=== PATIENT | male | born 1950 | race Caucasian/White ===

== ENCOUNTER 2017-08-19 10:34 | Day surgery (SDC) | payer MEDICARE, BC ==
[2017-08-19] MEDS ORDERED: DIPRIVAN 200 MG/20 ML IV ONE (10:35)
[2017-08-19] MEDS: Lactated Ringers 1,000 ML IV SCH ×2 (11:39→11:42)
--- NOTE | 2017-08-19 12:04 | HP ---
DATE OF SURGERY: 08/19/2017 HISTORY OF PRESENT ILLNESS: The patient is a 67 year-old gentleman who for a couple of months had problems with things getting stuck upper esophagus worse mainly with solids. His daughter, Yudi, had to do the Heimlich on him once or twice. He presents with dysphagia. He has had some reflux in the past. PAST MEDICAL HISTORY: Diabetes. PAST SURGICAL HISTORY: Upper endoscopy for reflux in the past. MEDICATIONS: Includes Metformin. ALLERGIES: NKDA. FAMILY HISTORY: Diabetes. SOCIAL HISTORY: No current smoking or alcohol abuse. REVIEW OF SYSTEMS: Twelve systems reviewed per admission assessment. No chest pain or palpitations other systems negative or noncontributory as above and per preadmission questionnaire. No current abdominal pain. PHYSICAL EXAMINATION: GENERAL: No acute distress. HEENT: Sclerae nonicteric. NECK: No JVD. CHEST: Equal excursion, nonlabored breathing. CVS: Regular rate and rhythm. ABDOMEN: Soft, nontender. EXTREMITIES: No edema. NEURO: Alert, moving extremities grossly symmetrically. IMPRESSION: Dysphagia unclear etiology. I feel he would benefit from upper endoscopy possible biopsy, possible esophageal dilatation. He was shown the risk sheet and explained the procedure in detail including but not limited to bleeding or infection, small risk of bowel injury or perforation possibly requiring open procedure, small risk of missed or nondiagnosis or inability to improve his situation or swallowing even with dilatation if it is more of a neurologic, functional problem or mechanical. He also understands if he has narrowing if he does have narrowed area and is dilated there is a chance that he might need to repeat it again down the road. He understands this as well as risk of sedation but not limited to. Will proceed with EGD, possible biopsy, possible dilatation when OR time available later today.
[2017-08-19 14:33] VITALS: BP 140/87; PULSE 60; O2SAT 96
--- NOTE | 2017-08-20 11:08 | OP ---
SURGERY DATE/TIME: 08/19/2017 1313 PREOPERATIVE DIAGNOSIS: Dysphagia. POSTOPERATIVE DIAGNOSES: 1) Mild chronic gastritis. 2) Distal esophagitis. 3) Proximal esophageal narrowing. PROCEDURES: 1) EGD with cold biopsy of the antrum to evaluate for Helicobacter pylori. 2) Cold biopsy distal esophagus to evaluate for esophagitis. 3) Esophageal balloon dilatation proximal esophageal narrowing (size 20 balloon dilator). SURGEON: Dr. Kun Pollard. ANESTHESIA: MAC. ESTIMATED BLOOD LOSS: Minimal. INDICATIONS: As noted above. Risks and benefits explained in detail and not limited to and consent obtained. DESCRIPTION OF PROCEDURE AND FINDINGS: The patient is taken to the operating room. MAC anesthesia introduced. After official time out and no disagreement with planned procedure, bite block positioned. Video gastroscope passed through the narrowed area of proximal esophagus where he was having problems with his symptoms with food getting stuck. The scope was able to be passed through this area. There were no signs of any obvious masses in this narrowed area. The scope passed back down the more distal esophagus. He had some evidence of esophagitis. No gross signs of Carranza's. The scope was able to be passed through with the gastroesophageal junction noted to be about 40 cm. The scope passed through the pylorus to the junction of the second and third portion of the duodenum. On withdrawal of the scope the duodenum, duodenal bulb grossly unremarkable. Back in the stomach he had some mild gastritis. A cold biopsy taken to evaluate for Helicobacter pylori. Good hemostasis noted. On retroflex there was no evidence of any large hiatal hernia and had just a very slight hiatal hernia. The scope was straightened. Gastroesophageal junction noted to be about 40 cm. Again, he had distal esophagus. Cold biopsies taken for further evaluation. Good hemostasis noted. Otherwise there is no evidence of any narrowed area here but in the proximal esophagus where the narrowed area had been there was no evidence of any mass or other lesion to biopsy but it was felt he would benefit from dilatation given his symptoms. The scope passed back down through the stomach. Balloon catheter carefully passed and under direct visualization pulled back to proximal esophageal narrowing and gradually inflated to size 18 for 30 to 45 seconds, size 19 for 30 to 45 seconds and then size 20 balloon dilator for 2 minutes. The balloon was then released and withdrawn. The scope was able to be passed through the area which was much more widely patent. The scope was passed back down the stomach slowly and carefully withdrawn. There is no evidence of any full thickness issues or injury secondary to dilatation. The patient tolerated the procedure well. Findings discussed with the family out in the waiting area. It was felt he would likely benefit from acid blockade. I will have his family doctor decide on medication of choice. In the meantime, I will see him back in the office to go over biopsy results next week.
== END 2017-08-19 14:47 | disposition home or self-care (01) ==
LOC: SDC 10:34
PROVIDERS: ATTEND Surgery
PROC: 0DB38ZX Excision of Lower Esophagus, Via Natural or Artificial Opening Endoscopic, Diagnostic (ICD-10-PCS; principal; 2017-08-19)
PROC: 0DB78ZX Excision of Stomach, Pylorus, Via Natural or Artificial Opening Endoscopic, Diagnostic (ICD-10-PCS; 2017-08-19)
PROC: 0D718ZZ Dilation of Upper Esophagus, Via Natural or Artificial Opening Endoscopic (ICD-10-PCS; 2017-08-19)
DX: K29.50 Unspecified chronic gastritis without bleeding (principal); K20.9 Esophagitis, unspecified; K22.2 Esophageal obstruction; E11.9 Type 2 diabetes mellitus without complications; Z79.4 Long term (current) use of insulin
CPT/HCPCS: 00740; C1726; J2704

== ENCOUNTER 2019-09-03 21:02 | Inpatient (IN) | payer MEDICARE ==
--- NOTE | 2019-09-03 21:11 | ERPHSYRPT ---
- History of Present Illness Time Seen by Provider: 09/03/19 21:36 Source: patient, family () Exam Limitations: clinical condition Patient Subjective Stated Complaint: Pt is here not feeling well. Pt has a headache and a cough and has been short of breath. Pt has also been a little confused per family. Physician History: Pt has had a bit of a cough for up to a week but much worse today. Pt not acting himself and had a high glucose of 400-500 at home earlier but was not that high on intake/triage. Pt has not been having any discomfort with urinating , nausea, vomiting or diarrhea. Pt has a headache. Pt has had a decreased appetite tonight. Pt did eat lunch - pizza and salad but became worse after that. Pt's states that the pt didn't have any fever at home but has a fever of 102.2 F by oral temp. Time of Onset/Last Time Seen Normal: started acting differently like he didn't feel well at 15:00. Timing/Duration: today Severity: moderate Character of Deficits: general (difuse) Deficits: decrease ability to stand, weak Baseline/Normal Cognition: alert oriented x 3 Current Cognition: alert oriented x 3 Associated Symptoms: confusion, weakness, headache, No nausea, No vomiting, No ringing in ears, No chest pain Allergies/Adverse Reactions: No Known Drug Allergies Allergy (Verified 09/03/19 21:30) Home Medications: Amlodipine Besylate 2.5 mg PO DAILY 09/03/19 [History] Atorvastatin Calcium 20 mg PO HS 09/03/19 [History] Cholecalciferol (Vitamin D3) [Vitamin D3] 1 tab PO DAILY 09/03/19 [History] Cyanocobalamin (Vitamin B-12) [Vitamin B12] 1,000 mcg PO DAILY 09/03/19 [History ] Gabapentin 100 mg PO BID 09/03/19 [History] Gabapentin 300 mg PO HS 09/03/19 [History] - Review of Systems Constitutional: Fever ( denies fever but pt had a fever on arrival), Other Eyes: Photophobia Ears, Nose, & Throat: No Symptoms Respiratory: Cough, No Stridor, No Wheezing Cardiac: No Symptoms, No Palpitations Abdominal/Gastrointestinal: No Symptoms, No Abdominal Pain, No Nausea, No Vomiting, No Diarrhea Genitourinary Symptoms: No Symptoms, Frequency, No Dysuria, No Hematuria, No Hesitancy, No Incontinence Musculoskeletal: No Symptoms Skin: No Symptoms Neurological: Headache, Lethargy, No Dizziness, No Focal Weakness, No Irritability, No Speech Changes Psychological: No Symptoms Endocrine: Other (hyperglycemia) Hematologic/Lymphatic: No Symptoms Immunological/Allergic: No Symptoms All Other Systems: Reviewed and Negative - Past Medical History Pertinent Past Medical History: Yes Neurological History: No Pertinent History ENT History: No Pertinent History Cardiac History: No Pertinent History Respiratory History: No Pertinent History Endocrine Medical History: Diabetes Type II Musculoskeletal History: No Pertinent History GI Medical History: Ulcer, Other History: Other Psycho-Social History: No Pertinent History Male Reproductive Disorders: No Pertinent History Other Medical History: states hx of only one kidney. esophageal ulcer 20 years ago. diet controlled diabetic - Past Surgical History Past Surgical History: Yes Neuro Surgical History: No Pertinent History Cardiac: No Pertinent History Respiratory: No Pertinent History Gastrointestinal: No Pertinent History Genitourinary: No Pertinent History Musculoskeletal: Other Male Surgical History: No Pertinent History Other Surgical History: fatty tumor exc on back. egd and colonoscopy. exploration to esophageal ulcer - Social History Smoking Status: Never smoker Exposure to second hand smoke: No Drug Use: none - Nursing Vital Signs Nursing Vital Signs: Initial Vital Signs Temperature 102 F 09/03/19 21:12 Pulse Rate 107 H 09/03/19 21:12 Respiratory Rate 19 09/03/19 21:12 Blood Pressure 158/79 09/03/19 21:12 O2 Sat by Pulse Oximetry 100 09/03/19 21:12 Pain Scale Pain Intensity 9 - Shantanu Coma Scale Best Eye Response (Shantanu): (4) open spontaneously Best Verbal Response ([place]): (5) oriented Best Motor Response ([place]): (6) obeys commands [place] Total: 15 - Physical Exam General Appearance: no apparent distress Eye Exam: bilateral eye: normal inspection, PERRL, EOMI Ears, Nose, Throat Exam: TMs normal, pharynx normal, dry mucous membranes, other (posterior aspect of the tongue is black and no peptobismol was given.) Neck Exam: normal inspection Respiratory: diminished breath sounds Cardiovascular: regular rate/rhythm, normal heart sounds, tachycardia, capillary refill <2 sec Gastrointestinal: soft, normal bowel sounds, No tenderness, No distention Extremity Exam: normal inspection, pedal edema (1/4) Peripheral Pulses: dorsalis-pedis (R): 2+, dorsalis-pedis (L): 2+ Mental Status: alert, oriented x 3, cooperative, lethargy (febrile), No agitated , 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 Exam: normal hearing, normal speech, PERRL, No facial asymmetry, No facial weakness, No gaze palsy Motor/Sensory: no motor deficit, no sensory deficit Skin Exam: normal color, warm, dry, other (very warm), No rash SpO2 Interpretation: normal SpO2: 100 O2 Delivery: Room Air - Course Nursing assessment & vital signs reviewed: Yes Ordered Tests: Active Orders 24 hr Category Date Time Status Accucheck STAT Care 09/03/19 21:48 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 09/03/19 21:50 Active Pulse Oximetry (ED) STAT Care 09/03/19 21:48 Active CHEST 2 VIEWS (PA AND LAT) Stat Exams 09/03/19 22:25 Taken BLOOD CULTURE Stat Lab 09/03/19 21:48 Ordered BNP [NT PRO BNP] Stat Lab 09/03/19 21:50 Completed CBC W DIFF Stat Lab 09/03/19 21:48 Completed CMP Stat Lab 09/03/19 21:48 Completed Lactic Acid Stat Lab 09/03/19 21:48 Results Manual Differential NC Stat Lab 09/03/19 21:48 Completed UA W/RFX UR CULTURE Stat Lab 09/03/19 22:53 Completed Medication Summary Generic Name Dose Route Start Last Admin Trade Name Freq PRN Reason Stop Dose Admin Ceftriaxone Sodium/Dextrose 1 g in 50 mls @ 100 mls/hr 09/03/19 22:54 23:00 Rocephin 1 Gm-D5w 50 Ml Bag IV 09/03/19 23:23 100 mls/hr STAT ONE 100 mls/hr Administration Discontinued Medications Generic Name Dose Route Start Last Admin Trade Name Freq PRN Reason Stop Dose Admin Acetaminophen 650 mg 09/03/19 21:48 09/03/19 21:54 Tylenol 325 Mg PO 09/03/19 21:49 650 mg STAT STA Administration Acetaminophen Confirm 09/03/19 21:53 Tylenol 325 Mg Administered 09/03/19 21:54 Dose 650 mg .ROUTE .STK-MED ONE Ceftriaxone Sodium/Dextrose Confirm 09/03/19 22:59 Rocephin 1 Gm-D5w 50 Ml Bag Administered 09/03/19 23:00 Dose 1 g in 50 mls @ ud IV .STK-MED ONE Lab/Rad Data: Laboratory Result Diagrams 09/03/19 21:48 09/03/19 21:48 Laboratory Results 09/03/19 09/03/19 09/03/19 Range/Units 22:53 21:50 21:48 WBC (4.0-10.5) K/mm3 RBC (4.1-5.6) M/mm3 Hgb (12.5-18.0) gm/dl Hct (42-50) % MCV (78-100) fl MCH (26-32) pg MCHC (32-36) g/dl RDW (11.5-14.0) % Plt Count (150-450) K/mm3 MPV (6-9.5) fl Sodium 138 (137-145) mmol/L Potassium 4.4 (3.5-5.1) mmol/L Chloride 101 (98-107) mmol/L Carbon Dioxide 27 (22-30) mmol/L Anion Gap 14.9 (5-15) MEQ/L BUN 22 H (9-20) mg/dL Creatinine 1.27 H (0.66-1.25) mg/dL Estimated GFR > 60.0 ML/MIN Glucose 200 H (74-106) mg/dL Lactic Acid (0.4-2.0) Calcium 9.9 (8.4-10.2) mg/dL Total Bilirubin 0.60 (0.2-1.3) mg/dL AST 19 (17-59) U/L ALT 19 (0-50) U/L Alkaline Phosphatase 93 (38-126) U/L NT-Pro-B Natriuret Pep 123 (0-900) pg/mL Serum Total Protein 8.1 (6.3-8.2) g/dL Albumin 4.3 (3.5-5.0) g/dL Urine Color YELLOW (YELLOW) Urine Appearance SLIGHTLY CLOUDY (CLEAR) Urine pH 5.0 (5-6) Ur Specific [place] 1.026 (1.005-1.025) Urine Protein NEGATIVE (Negative) Urine Ketones NEGATIVE (NEGATIVE) Urine Blood SMALL (0-5) [place]/ul Urine Nitrite NEGATIVE (NEGATIVE) Urine Bilirubin NEGATIVE (NEGATIVE) Urine Urobilinogen 2 (0-1) mg/dL Ur Leukocyte Esterase NEGATIVE (NEGATIVE) Urine WBC (Auto) 0-2 (0-5) /HPF Urine RBC (Auto) 0-2 (0-2) /HPF U Epithel Cells (Auto) NONE (FEW) /HPF Urine Bacteria (Auto) NONE (NEGATIVE) /HPF Urine Mucus (Auto) SLIGHT (NEGATIVE) /HPF Urine Culture Reflexed NO (NO) Urine Glucose 50 (NEGATIVE) mg/dL 09/03/19 09/03/19 Range/Units 21:48 21:48 WBC 28.9 H* (4.0-10.5) K/mm3 RBC 5.04 (4.1-5.6) M/mm3 Hgb 15.6 (12.5-18.0) gm/dl Hct 45.3 (42-50) % MCV 89.9 (78-100) fl MCH 31.0 (26-32) pg MCHC 34.4 (32-36) g/dl RDW 12.5 (11.5-14.0) % Plt Count 209 (150-450) K/mm3 MPV 10.8 H (6-9.5) fl Sodium (137-145) mmol/L Potassium (3.5-5.1) mmol/L Chloride (98-107) mmol/L Carbon Dioxide (22-30) mmol/L Anion Gap (5-15) MEQ/L BUN (9-20) mg/dL Creatinine (0.66-1.25) mg/dL Estimated GFR ML/MIN Glucose (74-106) mg/dL Lactic Acid 2.0 (0.4-2.0) Calcium (8.4-10.2) mg/dL Total Bilirubin (0.2-1.3) mg/dL AST (17-59) U/L ALT (0-50) U/L Alkaline Phosphatase (38-126) U/L NT-Pro-B Natriuret Pep (0-900) pg/mL Serum Total Protein (6.3-8.2) g/dL Albumin (3.5-5.0) g/dL Urine Color (YELLOW) Urine Appearance (CLEAR) Urine pH (5-6) Ur Specific [place] (1.005-1.025) Urine Protein (Negative) Urine Ketones (NEGATIVE) Urine Blood (0-5) [place]/ul Urine Nitrite (NEGATIVE) Urine Bilirubin (NEGATIVE) Urine Urobilinogen (0-1) mg/dL Ur Leukocyte Esterase (NEGATIVE) Urine WBC (Auto) (0-5) /HPF Urine RBC (Auto) (0-2) /HPF U Epithel Cells (Auto) (FEW) /HPF Urine Bacteria (Auto) (NEGATIVE) /HPF Urine Mucus (Auto) (NEGATIVE) /HPF Urine Culture Reflexed (NO) Urine Glucose (NEGATIVE) mg/dL - Progress Progress: improved Progress Note: 09/03/19 23:41 Pt's headache has improved after tylenol and slight decrease in fever. Pt's CXR appears to have an early infiltrate starting in bilateral lower lungs with granulomatous disease. Pt with lactic acid of 2.0 but WBC count of 28.9. Will admit for iv antibiotics and recheck CBC in the a.m. - Departure Departure Disposition: In-patient Admission Clinical Impression: Infiltrate of lung present on chest x-ray, Leukocytosis, Fever, Diabetes mellitus Condition: Stable Critical Care Time: No Referrals: JOÃO PADGETT DO [Primary Care Provider] - Additional Instructions: admit to inpt with IV antibiotics and IV fluids with recheck of labs in the morning.
[2019-09-03] MEDS ORDERED: TYLENOL 325 MG PO STA (21:48)
[2019-09-03] MEDS ORDERED: TYLENOL 325 MG ONE (21:53)
[2019-09-03 22:01] LABS: ALBUMIN 4.3 g/dL (3.5-5.0); ALKALINE PHOSPHATASE 93 U/L (38-126); ANION GAP 14.9 MEQ/L (5-15); BLOOD UREA NITROGEN 22 mg/dL (9-20); CHLORIDE 101 mmol/L (98-107); Calcium 9.9 mg/dL (8.4-10.2); Carbon Dioxide 27 mmol/L (22-30); Creatinine 1 1.27 mg/dL (0.66-1.25); Glucose 200 mg/dL (74-106); Potassium 4.4 mmol/L (3.5-5.1); SGOT/AST 19 U/L (17-59); SGPT/ALT 19 U/L (0-50); SODIUM 138 mmol/L (137-145); Total Protein 8.1 g/dL (6.3-8.2)
[2019-09-03 22:24] LABS: Hematocrit 45.3 % (42-50); Hemoglobin 15.6 gm/dl (12.5-18.0); Mean Cell Volume 89.9 fl (78-100); Mean Corpuscular Hgb Concent. 34.4 g/dl (32-36); Mean Platelet Volume 10.8 fl (6-9.5); Platelet Count 209 K/mm3 (150-450); Red Blood Count 5.04 M/mm3 (4.1-5.6); Red Cell Distribution Width 12.5 % (11.5-14.0)
[2019-09-03 22:31] LABS: White Blood Count 28.9 K/mm3 (4.0-10.5)
[2019-09-03] MEDS ORDERED: ROCEPHIN 1 Gm-D5w 50 ml Bag** 1 G/50 ML IVPB IV ONE ×2 (22:54→22:59)
[2019-09-03 23:11] LABS: Appearance SLIGHTLY CLOUDY (CLEAR); Bilirubin NEGATIVE (NEGATIVE); Blood SMALL Ery/ul (0-5); Glucose 50 mg/dL (NEGATIVE); Ketones NEGATIVE (NEGATIVE); Leukocyte Esterase NEGATIVE (NEGATIVE); Mucus SLIGHT /HPF (NEGATIVE); Nitrite NEGATIVE (NEGATIVE); Protein,Urine Dip NEGATIVE (Negative); RBC 0-2 /HPF (0-2); Specific Gravity 1.026 (1.005-1.025); Urobilinogen 2 mg/dL (0-1); WBC 0-2 /HPF (0-5)
[2019-09-03] MEDS ORDERED: Zithromax 500 MG/ 250 ML NaCl Premix 500 MG/250 ML IVPB IV ONE ×2 (23:22→23:37)
[2019-09-03 23:35] LABS: INFLUENZA A NEGATIVE (NEGATIVE); INFLUENZA B NEGATIVE (NEGATIVE); RESPIRATORY SYNCTIAL VIRUS NEGATIVE (Negative)
[2019-09-04] MEDS ORDERED: FEVERALL 650 MG PR PRN (00:19)
[2019-09-04 00:52] LABS: BAND 6 % (0.0-2.0); Basophil 1 % (0.0-1.0); Lymphocytes 11 % (24-44); Monocyte 6 % (0.0-12.0); Neutrophils 76 % (36.-66.); Total Cells Counted 100
[2019-09-04 00:53] LABS: Platelet Estimate NORMAL (NORMAL); Toxic Granulation RARE
[2019-09-04] MEDS ORDERED: DUONEB 0.5-3 MG/3 ml Neb IH SCH (01:00)
[2019-09-04] MEDS: Sodium Chloride 0.9% 1000 ML 1,000 ML IV SCH ×2 (01:09→10:52)
[2019-09-04] MEDS ORDERED: DUONEB 0.5-3 MG/3 ml Neb IH ONE (01:32)
[2019-09-04] MEDS ORDERED: DUONEB 0.5-3 MG/3 ml Neb IH PRN (01:52)
[2019-09-04 05:14] LABS: Hemoglobin 14.1 gm/dl (12.5-18.0); Mean Cell Volume 90.7 fl (78-100); Mean Corpuscular Hemoglobin 30.5 pg (26-32); Mean Corpuscular Hgb Concent. 33.6 g/dl (32-36); Mean Platelet Volume 10.4 fl (6-9.5); Platelet Count 168 K/mm3 (150-450); Red Blood Count 4.63 M/mm3 (4.1-5.6); Red Cell Distribution Width 12.4 % (11.5-14.0); White Blood Count 21.3 K/mm3 (4.0-10.5)
[2019-09-04 05:50] LABS: ANION GAP 12.3 MEQ/L (5-15); BLOOD UREA NITROGEN 24 mg/dL (9-20); CHLORIDE 105 mmol/L (98-107); Calcium 9.1 mg/dL (8.4-10.2); Carbon Dioxide 26 mmol/L (22-30); Creatinine 1 1.14 mg/dL (0.66-1.25); Glucose 92 mg/dL (74-106); Potassium 3.8 mmol/L (3.5-5.1); SODIUM 139 mmol/L (137-145)
--- NOTE | 2019-09-04 08:47 | XRAY ---
Indication: Fever and cough. Comparison: August 13, 2016. PA/lateral chest remains clear again with incidental calcified granulomas. Heart is not enlarged. Bony thorax intact. No new/acute findings.
--- NOTE | 2019-09-04 13:43 | PCM.HP ---
History of Present Illness - Chief Complaint Chief Complaint: pneumonia, leukocytosis, fever History of Present Illness: is a 69 year old male IDDM2 and HTN who presented to ER late yesterday . states he was not acting himself ,talking but not making sense c/o chills ,dry cough,SOB and sugars up to 400.Patient states he laid in a ditch trying to get a car out about 5 days ago and thinks a spider bit his left thigh and it is tender to touch. - Review of Systems Constitutional: Chills, Fatigue Eyes: No Symptoms Ears, Nose, & Throat: No Symptoms Respiratory: Cough Cardiac: No Symptoms Abdominal/Gastrointestinal: No Symptoms Genitourinary Symptoms: No Symptoms Musculoskeletal: Other (see HPI) Skin: Induration (c/o left anterior thigh with hard red area that is tender and thinks he got bit buy something when he was working on the car in the ditch because that is when he noticed it.) Neurological: Other (neuropathy ,takes Gabapentin) Psychological: No Symptoms, Other (spell of confusion resolved by the time patient was admitted per ) Endocrine: Other (DM2 on controlled on insulin until this month when the fatigue and dry cough started) Hematologic/Lymphatic: Adenopathy (left groin shotty nodes mildly tender ) Medications & Allergies Home Medications: Home Medication List Amlodipine Besylate 2.5 mg PO DAILY 09/03/19 [History Confirmed 09/04/19] Atorvastatin Calcium 20 mg PO HS 09/03/19 [History Confirmed 09/04/19] Cholecalciferol (Vitamin D3) [Vitamin D3] 1 tab PO DAILY 09/03/19 [History Confirmed 09/04/19] Cyanocobalamin (Vitamin B-12) [Vitamin B12] 1,000 mcg PO DAILY 09/03/19 [ History Confirmed 09/04/19] Gabapentin 100 mg PO BID 09/03/19 [History Confirmed 09/04/19] Gabapentin 300 mg PO HS 09/03/19 [History Confirmed 09/04/19] Glimepiride 1 mg PO TID 09/04/19 [History Confirmed 09/04/19] Insulin Glargine,Hum.rec.anlog [Basaglar Kwikpen U-100] 24 unit SQ HS 09/04/19 [ History Confirmed 09/04/19] Insulin Lispro [Humalog] 4 unit SQ AC 09/04/19 [History Confirmed 09/04/19] Allergies/Adverse Reactions: Allergies Allergy/AdvReac Type Severity Reaction Status Date / Time No Known Drug Allergies Allergy Verified 09/03/19 21:30 - Past Medical History Past Medical History: Yes Neurological History: No Pertinent History ENT History: No Pertinent History Cardiac History: No Pertinent History Respiratory History: No Pertinent History Endocrine Medical History: Diabetes Type II Musculoskelatal History: No Pertinent History GI Medical History: Ulcer, Other History: Other Pyscho-Social History: No Pertinent History Male Reproductive Disorders: No Pertinent History Comment: states hx of only one kidney. esophageal ulcer 20 years ago. diet controlled diabetic - Past Surgical History Past Surgical History: Yes Neuro Surgical History: No Pertinent History Cardiac History: No Pertinent History Respiratory Surgery: No Pertinent History GI Surgical History: No Pertinent History Genitourinary Surgical Hx: No Pertinent History Musculskeletal Surgical Hx: Other Male Surgical History: No Pertinent History Other Surgical History: fatty tumor exc on back. egd and colonoscopy. exploration to esophageal ulcer - Social History Smoking Status: Never smoker Exposure to second hand smoke: No Alcohol: None Drug Use: none - Physical Exam Vital Signs: Vital Signs - 24 hr Temp Pulse Resp BP Pulse Ox 09/04/19 12:00 98.9 F 81 20 130/70 96 09/04/19 10:43 85 18 96 09/04/19 08:00 99.4 F 89 19 147/68 95 09/04/19 04:00 99 F 91 H 18 154/79 94 L 09/04/19 01:34 88 20 94 L 09/04/19 00:28 101.4 F 98 H 14 130/60 95 09/03/19 23:56 100 09/03/19 23:48 99 H 158/78 97 09/03/19 22:53 92 H 127/59 99 09/03/19 21:53 100 H 122/57 97 09/03/19 21:12 102 F 107 H 19 158/79 100 General Appearance: no apparent distress Neurologic Exam: alert, oriented x 3, cooperative, normal mood/affect Eye Exam: eyes nml inspection Ears, Nose, Throat Exam: normal ENT inspection Neck Exam: normal inspection Respiratory Exam: diminished breath sounds (left base) Cardiovascular Exam: regular rate/rhythm Gastrointestinal/Abdomen Exam: soft, normal bowel sounds (nontender) Male Genitalia Exam: other (no palpable hernia but there is tenderness in the left groin) Extremity Exam: other ( left mid thigh with a slightly reddened,indurated flat coin size area,skin is intact) Results - Labs Lab/Micro Results: Accuchecks Date 09/04/19 Date 09/04/19 Time 11:30 Time 07:30 Accucheck Value: 133 Accucheck Value: 205 Lab Results-Last 24 Hours 09/03/19 09/03/19 09/03/19 Range/Units 21:48 21:48 21:48 WBC 28.9 H* (4.0-10.5) K/mm3 RBC 5.04 (4.1-5.6) M/mm3 Hgb 15.6 (12.5-18.0) gm/dl Hct 45.3 (42-50) % MCV 89.9 (78-100) fl MCH 31.0 (26-32) pg MCHC 34.4 (32-36) g/dl RDW 12.5 (11.5-14.0) % Plt Count 209 (150-450) K/mm3 MPV 10.8 H (6-9.5) fl Segmented Neutrophils 76 H (36.-66.) % Band Neutrophils 6 H (0.0-2.0) % Lymphocytes (Manual) 11 L (24-44) % Monocytes (Manual) 6 (0.0-12.0) % Basophils (Manual) 1 (0.0-1.0) % Toxic Granulation RARE Platelet Estimate NORMAL (NORMAL) RBC Morphology NORMAL Sodium 138 (137-145) mmol/L Potassium 4.4 (3.5-5.1) mmol/L Chloride 101 (98-107) mmol/L Carbon Dioxide 27 (22-30) mmol/L Anion Gap 14.9 (5-15) MEQ/L BUN 22 H (9-20) mg/dL Creatinine 1.27 H (0.66-1.25) mg/dL Estimated GFR > 60.0 ML/MIN Glucose 200 H (74-106) mg/dL Lactic Acid 2.0 (0.4-2.0) Calcium 9.9 (8.4-10.2) mg/dL Total Bilirubin 0.60 (0.2-1.3) mg/dL AST 19 (17-59) U/L ALT 19 (0-50) U/L Alkaline Phosphatase 93 (38-126) U/L NT-Pro-B Natriuret Pep (0-900) pg/mL Serum Total Protein 8.1 (6.3-8.2) g/dL Albumin 4.3 (3.5-5.0) g/dL Urine Color (YELLOW) Urine Appearance (CLEAR) Urine pH (5-6) Ur Specific Huggins (1.005-1.025) Urine Protein (Negative) Urine Ketones (NEGATIVE) Urine Blood (0-5) Jamison/ul Urine Nitrite (NEGATIVE) Urine Bilirubin (NEGATIVE) Urine Urobilinogen (0-1) mg/dL Ur Leukocyte Esterase (NEGATIVE) Urine WBC (Auto) (0-5) /HPF Urine RBC (Auto) (0-2) /HPF U Epithel Cells (Auto) (FEW) /HPF Urine Bacteria (Auto) (NEGATIVE) /HPF Urine Mucus (Auto) (NEGATIVE) /HPF Urine Culture Reflexed (NO) Urine Glucose (NEGATIVE) mg/dL Influenza Type A Ag (NEGATIVE) Influenza Type B Ag (NEGATIVE) RSV (PCR) (Negative) 09/03/19 09/03/19 09/03/19 Range/Units 21:50 22:00 22:53 WBC (4.0-10.5) K/mm3 RBC (4.1-5.6) M/mm3 Hgb (12.5-18.0) gm/dl Hct (42-50) % MCV (78-100) fl MCH (26-32) pg MCHC (32-36) g/dl RDW (11.5-14.0) % Plt Count (150-450) K/mm3 MPV (6-9.5) fl Segmented Neutrophils (36.-66.) % Band Neutrophils (0.0-2.0) % Lymphocytes (Manual) (24-44) % Monocytes (Manual) (0.0-12.0) % Basophils (Manual) (0.0-1.0) % Toxic Granulation Platelet Estimate (NORMAL) RBC Morphology Sodium (137-145) mmol/L Potassium (3.5-5.1) mmol/L Chloride (98-107) mmol/L Carbon Dioxide (22-30) mmol/L Anion Gap (5-15) MEQ/L BUN (9-20) mg/dL Creatinine (0.66-1.25) mg/dL Estimated GFR ML/MIN Glucose (74-106) mg/dL Lactic Acid (0.4-2.0) Calcium (8.4-10.2) mg/dL Total Bilirubin (0.2-1.3) mg/dL AST (17-59) U/L ALT (0-50) U/L Alkaline Phosphatase (38-126) U/L NT-Pro-B Natriuret Pep 123 (0-900) pg/mL Serum Total Protein (6.3-8.2) g/dL Albumin (3.5-5.0) g/dL Urine Color YELLOW (YELLOW) Urine Appearance SLIGHTLY CLOUDY (CLEAR) Urine pH 5.0 (5-6) Ur Specific Huggins 1.026 (1.005-1.025) Urine Protein NEGATIVE (Negative) Urine Ketones NEGATIVE (NEGATIVE) Urine Blood SMALL (0-5) Jamison/ul Urine Nitrite NEGATIVE (NEGATIVE) Urine Bilirubin NEGATIVE (NEGATIVE) Urine Urobilinogen 2 (0-1) mg/dL Ur Leukocyte Esterase NEGATIVE (NEGATIVE) Urine WBC (Auto) 0-2 (0-5) /HPF Urine RBC (Auto) 0-2 (0-2) /HPF U Epithel Cells (Auto) NONE (FEW) /HPF Urine Bacteria (Auto) NONE (NEGATIVE) /HPF Urine Mucus (Auto) SLIGHT (NEGATIVE) /HPF Urine Culture Reflexed NO (NO) Urine Glucose 50 (NEGATIVE) mg/dL Influenza Type A Ag NEGATIVE (NEGATIVE) Influenza Type B Ag NEGATIVE (NEGATIVE) RSV (PCR) NEGATIVE (Negative) 09/04/19 09/04/19 09/04/19 Range/Units 01:33 04:35 04:35 WBC 21.3 H (4.0-10.5) K/mm3 RBC 4.63 (4.1-5.6) M/mm3 Hgb 14.1 (12.5-18.0) gm/dl Hct 42.0 (42-50) % MCV 90.7 (78-100) fl MCH 30.5 (26-32) pg MCHC 33.6 (32-36) g/dl RDW 12.4 (11.5-14.0) % Plt Count 168 (150-450) K/mm3 MPV 10.4 H (6-9.5) fl Segmented Neutrophils (36.-66.) % Band Neutrophils (0.0-2.0) % Lymphocytes (Manual) (24-44) % Monocytes (Manual) (0.0-12.0) % Basophils (Manual) (0.0-1.0) % Toxic Granulation Platelet Estimate (NORMAL) RBC Morphology Sodium 139 (137-145) mmol/L Potassium 3.8 (3.5-5.1) mmol/L Chloride 105 (98-107) mmol/L Carbon Dioxide 26 (22-30) mmol/L Anion Gap 12.3 (5-15) MEQ/L BUN 24 H (9-20) mg/dL Creatinine 1.14 (0.66-1.25) mg/dL Estimated GFR > 60.0 ML/MIN Glucose 92 (74-106) mg/dL Lactic Acid 1.5 (0.4-2.0) Calcium 9.1 (8.4-10.2) mg/dL Total Bilirubin (0.2-1.3) mg/dL AST (17-59) U/L ALT (0-50) U/L Alkaline Phosphatase (38-126) U/L NT-Pro-B Natriuret Pep (0-900) pg/mL Serum Total Protein (6.3-8.2) g/dL Albumin (3.5-5.0) g/dL Urine Color (YELLOW) Urine Appearance (CLEAR) Urine pH (5-6) Ur Specific Huggins (1.005-1.025) Urine Protein (Negative) Urine Ketones (NEGATIVE) Urine Blood (0-5) Jamison/ul Urine Nitrite (NEGATIVE) Urine Bilirubin (NEGATIVE) Urine Urobilinogen (0-1) mg/dL Ur Leukocyte Esterase (NEGATIVE) Urine WBC (Auto) (0-5) /HPF Urine RBC (Auto) (0-2) /HPF U Epithel Cells (Auto) (FEW) /HPF Urine Bacteria (Auto) (NEGATIVE) /HPF Urine Mucus (Auto) (NEGATIVE) /HPF Urine Culture Reflexed (NO) Urine Glucose (NEGATIVE) mg/dL Influenza Type A Ag (NEGATIVE) Influenza Type B Ag (NEGATIVE) RSV (PCR) (Negative) Accuchecks Date 09/04/19 Date 09/04/19 Time 11:30 Time 07:30 Accucheck Value: 133 Accucheck Value: 205 - Radiology Impressions Radiology Exams & Impressions: Radiology Procedures Category Date Time Status CHEST 2 VIEWS (PA AND LAT) Stat Exams 09/03/19 22:25 Completed - Other Procedures and Tests Respiratory Therapy 09/04/19 01:37 Respiratory Therapy Assessment DAILY Assessment/Plan (1) Leukocytosis Current Visit: Yes Status: Acute Assessment & Plan: improving after 1st dose Zithromax and Rocephin Code(s): D72.829 - ELEVATED WHITE BLOOD CELL COUNT, UNSPECIFIED (2) Left lower lobe pneumonia Current Visit: Yes Status: Acute Assessment & Plan: responding to current Tx Code(s): J18.9 - PNEUMONIA, UNSPECIFIED ORGANISM (3) DM2 (diabetes mellitus, type 2) Current Visit: Yes Status: Acute Qualifiers: Diabetes mellitus group home insulin use: with group home use Diabetes mellitus complication status: with hyperglycemia Qualified Code(s): E11.65 - Type 2 diabetes mellitus with hyperglycemia; Z79.4 - senior living (current) use of insulin (4) HTN (hypertension), benign Current Visit: Yes Status: Acute Code(s): I10 - ESSENTIAL (PRIMARY) HYPERTENSION
[2019-09-04] MEDS: NORVASC 5 MG PO SCH (16:24)
[2019-09-04] MEDS: VITAMIN D PO SCH (16:24)
[2019-09-04] MEDS: Vitamin B-12 500 MCG PO SCH (16:24)
[2019-09-04] MEDS: Amaryl 2 MG PO SCH (16:25)
[2019-09-04] MEDS: Neurontin 100 MG PO SCH (16:26)
[2019-09-04] MEDS ORDERED: NON-FORMULARY ITEM (Insulin Lispro 4 UNIT) SQ SCH (16:30)
[2019-09-04] MEDS: NovoLOG Insulin SQ PRN ×2 (16:58→21:46)
[2019-09-04] MEDS: NovoLOG Insulin SQ SCH (16:59)
[2019-09-04] MEDS ORDERED: TYLENOL 325 MG PO PRN (19:47)
[2019-09-04] MEDS ORDERED: TYLENOL 325 MG ONE (19:50)
[2019-09-04] MEDS: TYLENOL 325 MG PO PRN (19:56)
[2019-09-04] MEDS: DUONEB 0.5-3 MG/3 ml Neb IH SCH (20:05)
[2019-09-04] MEDS: ROCEPHIN 1 Gm-D5w 50 ml Bag** 1 G/50 ML IVPB IV SCH (21:39)
[2019-09-04] MEDS: NEURONTIN 300 MG PO SCH (21:45)
[2019-09-04] MEDS: ZOCOR 20MG PO SCH (21:45)
[2019-09-04] MEDS: Lantus Insulin SQ SCH (21:45)
[2019-09-04] MEDS ORDERED: INSULIN GLARGINE HUM REC ANLOG 24 UNIT SQ SCH (22:00)
[2019-09-04] MEDS: Zithromax 500 MG/ 250 ML NaCl Premix 500 MG/250 ML IVPB IV SCH (22:24)
[2019-09-05] MEDS: Sodium Chloride 0.9% 1000 ML 1,000 ML IV SCH (02:07)
[2019-09-05] MEDS: DUONEB 0.5-3 MG/3 ml Neb IH SCH ×3 (07:10→19:22)
[2019-09-05] MEDS: Neurontin 100 MG PO SCH ×2 (08:37→17:58)
[2019-09-05] MEDS: Amaryl 2 MG PO SCH ×3 (08:37→17:58)
[2019-09-05] MEDS: NovoLOG Insulin SQ SCH ×3 (08:38→17:59)
[2019-09-05] MEDS ORDERED: CHOLECALCIFEROL PO SCH (10:00)
[2019-09-05] MEDS: NORVASC 5 MG PO SCH (11:05)
[2019-09-05] MEDS: Vitamin B-12 500 MCG PO SCH (11:05)
[2019-09-05] MEDS: VITAMIN D PO SCH (11:06)
[2019-09-05 12:06] LABS: Absolute Neutrophil Ct (ANC) 5.51 (1.4-6.9); BASOPHIL % 0.6 % (0.0-0.4); Basophil (Absolute #) 0.05 (0-0.4); Eosinophil % 3.6 % (0.00-5.0); Eosinophil (Absolute #) 0.32 (0-0.5); Hematocrit 39.9 % (42-50); Hemoglobin 13.1 gm/dl (12.5-18.0); Lymphocyte (Absolute #) 1.92 (1.0-4.6); Lymphocytes % 21.5 % (24.0-44.0); Mean Cell Volume 92.1 fl (78-100); Mean Corpuscular Hemoglobin 30.3 pg (26-32); Mean Corpuscular Hgb Concent. 32.8 g/dl (32-36); Mean Platelet Volume 10.3 fl (6-9.5); Monocyte (Absolute #) 1.11 (0.0-1.3); Monocytes % 12.5 % (0.0-12.0); Neutrophil % 61.8 % (36.0-66.0); Platelet Count 153 K/mm3 (150-450); Red Blood Count 4.33 M/mm3 (4.1-5.6); Red Cell Distribution Width 12.5 % (11.5-14.0); White Blood Count 8.9 K/mm3 (4.0-10.5)
[2019-09-05 12:09] LABS: ANION GAP 11.2 MEQ/L (5-15); BLOOD UREA NITROGEN 16 mg/dL (9-20); CHLORIDE 105 mmol/L (98-107); Calcium 8.7 mg/dL (8.4-10.2); Carbon Dioxide 25 mmol/L (22-30); Creatinine 1 1.05 mg/dL (0.66-1.25); Glucose 256 mg/dL (74-106); Potassium 4.2 mmol/L (3.5-5.1); SODIUM 136 mmol/L (137-145)
[2019-09-05] MEDS: Maxzide-25MG Tablet PO SCH (12:58)
[2019-09-05] MEDS: NovoLOG Insulin SQ PRN ×2 (12:59→21:56)
[2019-09-05] MEDS: TYLENOL 325 MG PO PRN (13:02)
[2019-09-05] MEDS: ROCEPHIN 1 Gm-D5w 50 ml Bag** 1 G/50 ML IVPB IV SCH (21:55)
[2019-09-05] MEDS: ZOCOR 20MG PO SCH (21:55)
[2019-09-05] MEDS: Lantus Insulin SQ SCH (21:55)
[2019-09-05] MEDS: NEURONTIN 300 MG PO SCH (21:55)
[2019-09-05] MEDS: Zithromax 500 MG/ 250 ML NaCl Premix 500 MG/250 ML IVPB IV SCH (22:28)
--- NOTE | 2019-09-06 01:11 | PCM.NOTE ---
Date and Time: 09/05/19 1200 Subjective Assessment: Patient states cough is loosening and no further chills ,appetite is good. C/O feet swelling .Has been receiving IV saline. Denies chest pain. Objective Exam General Appearance: no apparent distress Neurologic Exam: alert, oriented x 3 Skin Exam: normal color, warm, dry Neck Exam: normal inspection Respiratory Exam: diminished breath sounds (improved aeration left base) Cardiovascular Exam: regular rate/rhythm Gastrointestinal/Abdomen Exam: soft, normal bowel sounds Extremity Exam: pedal edema, other (no calf tenderness,negative golden's) OBJECTIVE DATA Vital Signs: Vital Signs - 24 hr Temp Pulse Resp BP Pulse Ox 09/06/19 00:06 98.7 F 81 18 166/77 97 09/05/19 20:00 98.5 F 76 20 130/70 97 09/05/19 19:23 86 18 97 09/05/19 16:00 98.3 F 70 18 190/74 97 09/05/19 15:10 76 18 97 09/05/19 12:00 98.7 F 78 18 141/71 93 L 09/05/19 08:00 98.5 F 79 20 163/73 95 09/05/19 07:11 75 16 96 09/05/19 04:00 98.3 F 72 18 139/67 95 Pain Assessment - Last Documented Pain Intensity 0 Pain Scale Used 0-10 Pain Scale Intake and Output: Intake & Output 09/03/19 09/04/19 09/05/19 09/06/19 11:59 11:59 11:59 11:59 Intake Total 540 3531 1640 Output Total 400 600 300 Balance 140 2931 1340 Weight 103.1 kg Lab Results: Accuchecks Accucheck Value: 234 Accucheck Value: 128 Accucheck Value: 257 Accucheck Value: 146 Lab Results-Last 24 Hours 09/05/19 09/05/19 Range/Units 11:50 11:50 WBC 8.9 (4.0-10.5) K/mm3 RBC 4.33 (4.1-5.6) M/mm3 Hgb 13.1 (12.5-18.0) gm/dl Hct 39.9 L (42-50) % MCV 92.1 (78-100) fl MCH 30.3 (26-32) pg MCHC 32.8 (32-36) g/dl RDW 12.5 (11.5-14.0) % Plt Count 153 (150-450) K/mm3 MPV 10.3 H (6-9.5) fl Gran % 61.8 (36.0-66.0) % Eos # (Auto) 0.32 (0-0.5) Absolute Lymphs (auto) 1.92 (1.0-4.6) Absolute Monos (auto) 1.11 (0.0-1.3) Lymphocytes % 21.5 L (24.0-44.0) % Monocytes % 12.5 H (0.0-12.0) % Eosinophils % 3.6 (0.00-5.0) % Basophils % 0.6 (0.0-0.4) % Absolute Granulocytes 5.51 (1.4-6.9) Basophils # 0.05 (0-0.4) Sodium 136 L (137-145) mmol/L Potassium 4.2 (3.5-5.1) mmol/L Chloride 105 (98-107) mmol/L Carbon Dioxide 25 (22-30) mmol/L Anion Gap 11.2 (5-15) MEQ/L BUN 16 (9-20) mg/dL Creatinine 1.05 (0.66-1.25) mg/dL Estimated GFR > 60.0 ML/MIN Glucose 256 H (74-106) mg/dL Calcium 8.7 (8.4-10.2) mg/dL Assessment/Plan (1) Leukocytosis Current Visit: Yes Status: Acute Assessment & Plan: improved Code(s): D72.829 - ELEVATED WHITE BLOOD CELL COUNT, UNSPECIFIED (2) Left lower lobe pneumonia Current Visit: Yes Status: Acute Assessment & Plan: improved Code(s): J18.9 - PNEUMONIA, UNSPECIFIED ORGANISM (3) DM2 (diabetes mellitus, type 2) Current Visit: Yes Status: Acute Qualifiers: 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
[2019-09-06] MEDS: TYLENOL 325 MG PO PRN ×2 (04:28→15:07)
[2019-09-06] MEDS: Maxzide-25MG Tablet PO SCH (09:20)
[2019-09-06] MEDS: NORVASC 5 MG PO SCH (09:21)
[2019-09-06] MEDS: Vitamin B-12 500 MCG PO SCH (09:21)
[2019-09-06] MEDS: Amaryl 2 MG PO SCH ×2 (09:22→13:13)
[2019-09-06] MEDS: VITAMIN D PO SCH (09:22)
[2019-09-06] MEDS: Neurontin 100 MG PO SCH (09:23)
[2019-09-06] MEDS: NovoLOG Insulin SQ SCH ×2 (09:23→13:15)
[2019-09-06] MEDS: NovoLOG Insulin SQ PRN ×2 (09:24→13:16)
[2019-09-06] MEDS: DUONEB 0.5-3 MG/3 ml Neb IH SCH (10:03)
[2019-09-06 15:00] LABS: Absolute Neutrophil Ct (ANC) 4.64 (1.4-6.9); BASOPHIL % 0.7 % (0.0-0.4); Basophil (Absolute #) 0.06 (0-0.4); Eosinophil % 5.1 % (0.00-5.0); Eosinophil (Absolute #) 0.41 (0-0.5); Hematocrit 41.8 % (42-50); Lymphocytes % 25.9 % (24.0-44.0); Mean Cell Volume 90.7 fl (78-100); Mean Corpuscular Hemoglobin 30.4 pg (26-32); Mean Corpuscular Hgb Concent. 33.5 g/dl (32-36); Mean Platelet Volume 10.3 fl (6-9.5); Monocyte (Absolute #) 0.89 (0.0-1.3); Neutrophil % 57.3 % (36.0-66.0); Platelet Count 187 K/mm3 (150-450); Red Blood Count 4.61 M/mm3 (4.1-5.6); Red Cell Distribution Width 12.4 % (11.5-14.0); White Blood Count 8.1 K/mm3 (4.0-10.5)
[2019-09-06 15:16] LABS: ANION GAP 12.1 MEQ/L (5-15); BLOOD UREA NITROGEN 17 mg/dL (9-20); CHLORIDE 102 mmol/L (98-107); Calcium 9.4 mg/dL (8.4-10.2); Carbon Dioxide 26 mmol/L (22-30); Creatinine 1 1.14 mg/dL (0.66-1.25); Glucose 249 mg/dL (74-106); Potassium 4.3 mmol/L (3.5-5.1); SODIUM 136 mmol/L (137-145)
--- NOTE | 2019-09-06 15:52 | PCM.DS ---
Discharge Summary Date of Admission: 09/04/19 00:12 Admitting Physician: JOÃO PADGETT DO Primary Care Provider: JOÃO PADGETT DO Allergies Allergies No Known Drug Allergies Allergy (Verified 09/03/19 21:30) Hospital Summary - Hospital Course Hospital Course: Patient presented to ER with weakness and cough and elevated sugars and some mental confusion and was found to have LLL pneumonia and WBC 28,500. - Vitals & Intake/Output Vital Signs: Vital Signs Temperature 98.2 F 09/06/19 12:00 Pulse Rate 80 09/06/19 12:00 Respiratory Rate 18 09/06/19 12:00 Blood Pressure 160/66 09/06/19 12:00 O2 Sat by Pulse Oximetry 93 L 09/06/19 12:00 Intake & Output: Intake & Output 09/04/19 09/05/19 09/06/19 09/07/19 11:59 11:59 11:59 11:59 Intake Total 540 3531 2540 360 Output Total 400 600 300 Balance 140 2931 2240 360 Weight 103.1 kg - Lab Result Diagrams: 09/06/19 14:45 09/06/19 13:50 Lab Results-Last 24 Hrs: Accuchecks Accucheck Value: 201 Accucheck Value: 234 Accucheck Value: 128 Lab Results-Last 24 Hours 09/06/19 09/06/19 Range/Units 13:50 14:45 WBC 8.1 (4.0-10.5) K/mm3 RBC 4.61 (4.1-5.6) M/mm3 Hgb 14.0 (12.5-18.0) gm/dl Hct 41.8 L (42-50) % MCV 90.7 (78-100) fl MCH 30.4 (26-32) pg MCHC 33.5 (32-36) g/dl RDW 12.4 (11.5-14.0) % Plt Count 187 (150-450) K/mm3 MPV 10.3 H (6-9.5) fl Gran % 57.3 (36.0-66.0) % Eos # (Auto) 0.41 (0-0.5) Absolute Lymphs (auto) 2.10 (1.0-4.6) Absolute Monos (auto) 0.89 (0.0-1.3) Lymphocytes % 25.9 (24.0-44.0) % Monocytes % 11.0 (0.0-12.0) % Eosinophils % 5.1 H (0.00-5.0) % Basophils % 0.7 (0.0-0.4) % Absolute Granulocytes 4.64 (1.4-6.9) Basophils # 0.06 (0-0.4) Sodium 136 L (137-145) mmol/L Potassium 4.3 (3.5-5.1) mmol/L Chloride 102 (98-107) mmol/L Carbon Dioxide 26 (22-30) mmol/L Anion Gap 12.1 (5-15) MEQ/L BUN 17 (9-20) mg/dL Creatinine 1.14 (0.66-1.25) mg/dL Estimated GFR > 60.0 ML/MIN Glucose 249 H (74-106) mg/dL Calcium 9.4 (8.4-10.2) mg/dL Micro Results-Entire Visit: Microbiology 09/03/19 03:33 Blood Culture - Preliminary Blood NO GROWTH TO DATE 09/03/19 03:33 Blood Culture - Preliminary Blood NO GROWTH TO DATE Accuchecks Accucheck Value: 201 Accucheck Value: 234 Accucheck Value: 128 - Procedures and Test Procedures and Tests throughout Hospitalization: Therapy Orders & Screens 09/04/19 01:37 Respiratory Therapy Assessment DAILY Comment: Diagnosis: pneumonia, leukocytosis, fever 09/04/19 17:15 Peak Expiratory Flow Rate ONCE Comment: Reason For Exam: Diagnosis: pneumonia, leukocytosis, fever Final Diagnosis/Problem List - Final Discharge Diagnosis/Problem (1) Leukocytosis Current Visit: Yes Status: Acute Code(s): D72.829 - ELEVATED WHITE BLOOD CELL COUNT, UNSPECIFIED (2) Left lower lobe pneumonia Current Visit: Yes Status: Acute Code(s): J18.9 - PNEUMONIA, UNSPECIFIED ORGANISM (3) DM2 (diabetes mellitus, type 2) Current Visit: Yes Status: Acute (4) HTN (hypertension), benign Current Visit: Yes Status: Acute Code(s): I10 - ESSENTIAL (PRIMARY) HYPERTENSION - Discharge Disposition: Home, Self-Care Condition: Stable Prescriptions: No Action Amlodipine Besylate 2.5 mg PO DAILY Cholecalciferol (Vitamin D3) [Vitamin D3] 1 tab PO DAILY Cyanocobalamin (Vitamin B-12) [Vitamin B12] 1,000 mcg PO DAILY Gabapentin 100 mg PO BID Gabapentin 300 mg PO HS Atorvastatin Calcium 20 mg PO HS Insulin Glargine,Hum.rec.anlog [Basaglar Kwikpen U-100] 24 unit SQ HS Glimepiride 1 mg PO TID Insulin Lispro [Humalog] 4 unit SQ AC Follow up with: JOÃO PADGETT DO [Primary Care Provider] - 1 Week
[2019-09-06] MEDS ORDERED: ENOXAPARIN SODIUM SQ ONE (16:05)
--- NOTE | 2019-09-06 16:12 | PCM.DCORD ---
- Discharge Discharge Date: 09/06/19 Disposition: Home, Self-Care Condition: Stable Prescriptions: No Action Amlodipine Besylate 2.5 mg PO DAILY Cholecalciferol (Vitamin D3) [Vitamin D3] 1 tab PO DAILY Cyanocobalamin (Vitamin B-12) [Vitamin B12] 1,000 mcg PO DAILY Gabapentin 100 mg PO BID Gabapentin 300 mg PO HS Atorvastatin Calcium 20 mg PO HS Insulin Glargine,Hum.rec.anlog [Basaglar Kwikpen U-100] 24 unit SQ HS Glimepiride 1 mg PO TID Insulin Lispro [Humalog] 4 unit SQ AC Outpatient Orders: VENOUS UNILAT/LIMITED EXTREMIT Location: RADIOLOGY Additional Instructions: Patient will have doppler LLE tomorrow and have Lovenox Injection before discharge today(LLE swelling today) He will not take Novalog unless glucose is > 200 and will call if concern otherwise will be testing glucose daily FBS and 2hr after PM meal and keep food and glucose log and bring to appt next week Follow up with: JOÃO PADGETT DO [Primary Care Provider] - 1 Week
[2019-09-06 17:08] VITALS: BP 152/67; PULSE 72; O2SAT 96
== END 2019-09-06 17:00 | disposition home or self-care (01) | DRG 195 ==
LOC: ED 21:02 → MED SURG 09-04 00:12 → OBSVTOIN 09-04 00:12
PROVIDERS: ADMIT Family Medicine; ATTEND Family Medicine
DX: J18.9 Pneumonia, unspecified organism (principal); D72.829 Elevated white blood cell count, unspecified; R41.0 Disorientation, unspecified; E11.9 Type 2 diabetes mellitus without complications; R53.1 Weakness; I10 Essential (primary) hypertension; Z79.899 Other long term (current) drug therapy
CPT/HCPCS: 36000; 36415; 71046; 80048; 80053; 81001; 82962; 83605; 83880; 85025; 85027; 87040; 87045; 87046; 87335; 87631; 93041; 94150; 94640; 94760; 96365; 96367; 99285; J0456; J0696; J1650; A9270-GY

== ENCOUNTER 2021-08-14 15:02 | Observation (INO) | payer MEDICARE ==
[2021-08-14] MEDS ORDERED: SUBLIMAZE 100 MCG/2 ML IV ONE (15:32)
[2021-08-14] MEDS ORDERED: Zofran 4 MG/2 ML VIAL IV ONE (15:33)
[2021-08-14] MEDS ORDERED: Sodium Chloride 0.9% 1000 ML 1,000 ML IV STA (15:35)
[2021-08-14] MEDS ORDERED: Zofran 4 MG/2 ML VIAL ONE (15:38)
[2021-08-14] MEDS ORDERED: Sodium Chloride 0.9% 1000 ML 1,000 ML ONE (15:39)
[2021-08-14] MEDS ORDERED: SUBLIMAZE 100 MCG/2 ML ONE (15:39)
--- NOTE | 2021-08-14 15:42 | ERPHSYRPT ---
- History of Present Illness Historian: patient Exam Limitations: other (Poor historian) Patient Subjective Stated Complaint: pt here for right shoulder pain that radiates down back to flank for 2 days with n/v. no loose stools. fever yesterday, Triage Nursing Assessment: pt alert, [facility] face mask in place, abd soft Physician History: 71 yo wm sent from clinic for RUQ pain and WBC of 28K. Pain is a 10, sharp, and started 2 days ago. He also has R posterior thoracic pain. Pt denies chest pain. He had N/V yesterday wo diarrhea/melena/hematochezia/dysuria/hematuria/chest pain/fever. Pt has had a chronic cough and mild dyspnea since recovering from CV19 many months ago. Timing/Duration: other (2 days) Quality: stabbing Abdominal Pain Onset Location: RUQ Pain Radiation: scapula Severity of Pain-Max: severe Severity of Pain-Current: severe Modifying Factors: Improves With: nothing Associated Symptoms: back, nausea, neck pain, vomiting, No chest pain, No diaphoresis, No diarrhea, No fever/chills, No fatigue, No headache, No heartburn, No loss of appetite, No rash, No shortness of breath, No syncope, No testicular pain, No weakness Previous symptoms: no prior history Allergies/Adverse Reactions: No Known Drug Allergies Allergy (Verified 08/14/21 15:14) Home Medications: Amlodipine Besylate 2.5 mg PO DAILY 09/03/19 [History] Atorvastatin Calcium 20 mg PO DAILY 09/03/19 [History] Cholecalciferol (Vitamin D3) [Vitamin D3] 1 tab PO DAILY 09/03/19 [History] Cyanocobalamin (Vitamin B-12) [Vitamin B12] 1,000 mcg PO DAILY 09/03/19 [History] Gabapentin 0 mg PO TID 09/03/19 [History] Glimepiride 1 mg PO TID 09/04/19 [History] Insulin Glargine,Hum.rec.anlog [Basaglar Kwikpen U-100] 25 unit SQ HS 09/04/19 [History] Insulin Lispro [Humalog] 4 unit SQ AC 09/04/19 [History] Hx Tetanus, Diphtheria Vaccination/Date Given: No Hx Influenza Vaccination/Date Given: Yes Hx Pneumococcal Vaccination/Date Given: No Immunizations Up to Date: Yes Travel Risk - International Travel Have you traveled outside of the country in past 3 weeks: No - Coronavirus Screening Are you exhibiting any of the following symptoms?: Yes Symptoms: Vomiting/Diarrhea, Headaches/Body Aches/Fatigue Close contact with a COVID-19 positive Pt in past 14-21 Days: No - Vaccine Status Have you recieved a Covid-19 vaccination: Yes Farm Advisor: Moderna - Vaccination Dates Date of 2cond Vaccination (if applicable): ? - Review of Systems Constitutional: No Symptoms Eyes: No Symptoms Ears, Nose, & Throat: No Symptoms Respiratory: No Symptoms, Cough, Dyspnea Cardiac: No Symptoms Abdominal/Gastrointestinal: Abdominal Pain, Nausea, Vomiting, No Diarrhea, No Constipation, No Hematemesis, No Hematochezia, No Melena, No Dysphagia, No Appetite Changes Genitourinary Symptoms: No Symptoms Musculoskeletal: No Symptoms Skin: No Symptoms Neurological: No Symptoms Psychological: No Symptoms Endocrine: No Symptoms Hematologic/Lymphatic: No Symptoms - Past Medical History Pertinent Past Medical History: Yes Neurological History: No Pertinent History ENT History: No Pertinent History Cardiac History: No Pertinent History Respiratory History: No Pertinent History Endocrine Medical History: Diabetes Type II Musculoskeletal History: No Pertinent History GI Medical History: Ulcer, Other History: Other Psycho-Social History: No Pertinent History Male Reproductive Disorders: No Pertinent History Other Medical History: states hx of only one kidney. esophageal ulcer 20 years ago. diet controlled diabetic - Past Surgical History Past Surgical History: Yes Neuro Surgical History: No Pertinent History Cardiac: No Pertinent History Respiratory: No Pertinent History Gastrointestinal: No Pertinent History Genitourinary: No Pertinent History Musculoskeletal: Other Male Surgical History: No Pertinent History Other Surgical History: fatty tumor exc on back. egd and colonoscopy. exploration to esophageal ulcer - Social History Smoking Status: Never smoker Exposure to second hand smoke: No Drug Use: none Patient Lives Alone: No Significant Family History: no pertinent family hx - Nursing Vital Signs Nursing Vital Signs: Initial Vital Signs Temperature 97.2 F 08/14/21 15:02 Pulse Rate 86 08/14/21 15:02 Respiratory Rate 18 08/14/21 15:02 Blood Pressure 146/83 08/14/21 15:02 O2 Sat by Pulse Oximetry 95 08/14/21 15:02 Pain Scale Pain Intensity 4 Hypertensive - Physical Exam General Appearance: mild distress (Due to pain) Eye Exam: PERRL/EOMI, eyes nml inspection Ears, Nose, Throat Exam: normal ENT inspection, TMs normal, pharynx normal, moist mucous membranes Neck Exam: normal inspection, non-tender, supple, full range of motion, No meningismus, No mass, No Brudzinski, No Kernig's, No carotid bruit Respiratory Exam: airway intact, crackles/rales (Rales B bases) Cardiovascular Exam: regular rate/rhythm, normal heart sounds, normal peripheral pulses, No murmur Gastrointestinal/Abdomen Exam: soft, tenderness (RUQ TTP w guarding but no rebound), distention Back Exam: normal inspection, normal range of motion, No CVA tenderness, No vertebral tenderness Extremity Exam: normal inspection, normal range of motion Neurologic Exam: alert, oriented x 3, cooperative, 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 as tested, normal mood/affect, nml cerebellar function, nml station & gait, sensation nml Skin Exam: normal color, warm, dry Lymphatic Exam: No adenopathy SpO2 Interpretation: normal SpO2: 95 O2 Delivery: Room Air - Course Nursing assessment & vital signs reviewed: Yes EKG Interpreted by Me: RATE (NSR/R92/Tall R wave V2/Qwave 3-AVF/nonspecific ST wave abnormality) - CT Exams Abdomen/Pelvis CT Interpretation: Discussed w/radiologist (Distended gallbladder w large neck stone/Absent L kidney/Bibasilar interstitual opacities) Ordered Tests: Active Orders 24 hr Category Date Time Status EKG-ER Only STAT Care 08/14/21 15:35 Completed NPO Diet 08/14/21 19:13 Active ABDOMEN AND PELVIS W/0 CONTRAS [CT] Stat Exams 08/14/21 16:02 Completed AMYLASE Stat Lab 08/14/21 17:03 Completed CBC W DIFF AM.LAB Lab 08/15/21 04:00 Completed CMP AM.LAB Lab 08/15/21 04:00 Completed CULTURE,URINE Stat Lab 08/14/21 16:48 Received LIPASE Stat Lab 08/14/21 17:03 Completed TROPONIN Q3H Lab 08/14/21 13:50 Completed TROPONIN Q3H Lab 08/14/21 18:17 Completed TROPONIN Q3H Lab 08/14/21 22:00 Completed TROPONIN Q3H Lab 08/15/21 00:45 Completed TROPONIN Q3H Lab 08/15/21 03:45 Completed UA W/RFX UR CULTURE Stat Lab 08/14/21 16:48 Completed Medication Summary Generic Name Dose Route Start Last Admin Trade Name Su PRN Reason Stop Dose Admin Hydromorphone HCl 0.5 mg 08/14/21 19:12 08/15/21 03:57 Hydromorphone 1 Mg/1ml Inj 1 Mg/Ml Syringe IV 08/19/21 19:11 0.5 mg Q4H PRN PRN Administration PAIN Sodium Chloride 1,000 mls @ 100 mls/hr 08/14/21 19:15 08/14/21 19:19 Sodium Chloride 0.9% 1000 Ml IV 09/13/21 19:14 100 mls/hr .Q10H FEDERICO Administration Piperacillin Sod/Tazobactam 100 mls @ 200 mls/hr 08/15/21 00:00 08/15/21 05:23 Sod 3.375 gm/ Sodium Chloride IV 08/18/21 00:00 200 mls/hr Q6HT FEDERICO Administration Ondansetron HCl 4 mg 08/14/21 19:12 08/15/21 03:57 Ondansetron Hcl 4 Mg/2 Ml Vial IV 09/13/21 19:11 4 mg Q6H PRN PRN Administration NAUSEA/VOMITING Pantoprazole Sodium 40 mg 08/15/21 10:00 Pantoprazole 40 Mg Vial IV 09/14/21 09:59 Q24H10 FEDERICO Discontinued Medications Generic Name Dose Route Start Last Admin Trade Name Su PRN Reason Stop Dose Admin Fentanyl Citrate 50 mcg 08/14/21 15:32 08/14/21 15:42 Fentanyl Citrate 100 Mcg/2 Ml* Vial IV 08/14/21 15:33 50 mcg STAT ONE Administration Fentanyl Citrate Confirm 08/14/21 15:39 Fentanyl Citrate 100 Mcg/2 Ml* Vial Administered 08/14/21 15:40 Dose 100 mcg .ROUTE .STK-MED ONE Hydromorphone HCl 0.5 mg 08/14/21 16:46 08/14/21 16:52 Hydromorphone 1 Mg/1ml Inj 1 Mg/Ml Syringe IV 08/14/21 16:47 0.5 mg STAT ONE Administration Hydromorphone HCl Confirm 08/14/21 16:49 Hydromorphone 1 Mg/1ml Inj 1 Mg/Ml Syringe Administered 08/14/21 16:50 Dose 1 mg .ROUTE .STK-MED ONE Sodium Chloride 1,000 mls @ 999 mls/hr 08/14/21 15:35 08/14/21 17:09 Sodium Chloride 0.9% 1000 Ml IV 08/14/21 16:35 Infused .Q1H1M STA Infusion Sodium Chloride Confirm 08/14/21 15:39 Sodium Chloride 0.9% 1000 Ml Administered 08/14/21 15:40 Dose 1,000 mls @ ud .ROUTE .STK-MED ONE Piperacillin Sod/Tazobactam 100 mls @ 200 mls/hr 08/14/21 17:46 08/14/21 17:54 Sod 3.375 gm/ Sodium Chloride IV 08/14/21 18:15 200 mls/hr STAT ONE Administration Sodium Chloride Confirm 08/14/21 17:52 Sodium Chloride 100ml Mini-Bag Plus Administered 08/14/21 17:53 Dose 100 mls @ ud IV .STK-MED ONE Sodium Chloride Confirm 08/14/21 23:32 Sodium Chloride 100ml Mini-Bag Plus Administered 08/14/21 23:33 Dose 100 mls @ ud IV .STK-MED ONE Sodium Chloride Confirm 08/15/21 04:55 Sodium Chloride 100ml Mini-Bag Plus Administered 08/15/21 04:56 Dose 100 mls @ ud IV .STK-MED ONE Ketorolac Tromethamine 30 mg 08/14/21 23:48 08/15/21 00:32 Ketorolac Tromethamine 30 Mg/Ml Inj IM 08/14/21 23:49 Not Given STAT ONE Ondansetron HCl 4 mg 08/14/21 15:33 08/14/21 15:41 Ondansetron Hcl 4 Mg/2 Ml Vial IV 08/14/21 15:34 4 mg STAT ONE Administration Ondansetron HCl Confirm 08/14/21 15:38 Ondansetron Hcl 4 Mg/2 Ml Vial Administered 08/14/21 15:39 Dose 4 mg .ROUTE .STK-MED ONE Piperacillin Sod/Tazobactam Sod Confirm 08/14/21 17:51 Piperacillin/Tazobactam Sodium 3.375 Gm Vial Administered 08/14/21 17:52 Dose 3.375 gm IV .STK-MED ONE Piperacillin Sod/Tazobactam Sod Confirm 08/14/21 23:31 Piperacillin/Tazobactam Sodium 3.375 Gm Vial Administered 08/14/21 23:32 Dose 3.375 gm IV .STK-MED ONE Piperacillin Sod/Tazobactam Sod Confirm 08/15/21 04:55 Piperacillin/Tazobactam Sodium 3.375 Gm Vial Administered 08/15/21 04:56 Dose 3.375 gm IV .STK-MED ONE Lab/Rad Data: Laboratory Results 08/14/21 08/14/21 08/14/21 Range/Units 19:16 18:17 17:03 Troponin I < 0.012 (0.000-0.034) ng/mL Amylase < 30 L (30-110) U/L Lipase 48 (23-300) U/L Urine Color (YELLOW) Urine Appearance (CLEAR) Urine pH (5-6) Ur Specific [place] (1.005-1.025) Urine Protein (Negative) Urine Ketones (NEGATIVE) Urine Blood (0-5) Jamison/ul Urine Nitrite (NEGATIVE) Urine Bilirubin (NEGATIVE) Urine Urobilinogen (0-1) mg/dL Ur Leukocyte Esterase (NEGATIVE) Urine WBC (Auto) (0-5) /HPF Urine RBC (Auto) (0-2) /HPF U Hyaline Cast (Auto) (0-2) /LPF U Epithel Cells (Auto) (FEW) /HPF Urine Bacteria (Auto) (NEGATIVE) /HPF Urine Mucus (Auto) (NEGATIVE) /HPF Urine Culture Reflexed (NO) Urine Glucose (NEGATIVE) mg/dL Influenza Type A Ag NEGATIVE (NEGATIVE) Influenza Type B Ag NEGATIVE (NEGATIVE) RSV (PCR) NEGATIVE (Negative) SARS-CoV-2 (PCR) NEGATIVE (NEGATIVE) 08/14/21 08/14/21 Range/Units 16:48 13:50 Troponin I < 0.012 (0.000-0.034) ng/mL Amylase (30-110) U/L Lipase (23-300) U/L Urine Color YUDI (YELLOW) Urine Appearance SLIGHTLY CLOUDY (CLEAR) Urine pH 5.0 (5-6) Ur Specific [place] 1.021 (1.005-1.025) Urine Protein 100 (Negative) Urine Ketones NEGATIVE (NEGATIVE) Urine Blood SMALL (0-5) Jamison/ul Urine Nitrite NEGATIVE (NEGATIVE) Urine Bilirubin NEGATIVE (NEGATIVE) Urine Urobilinogen 4 (0-1) mg/dL Ur Leukocyte Esterase NEGATIVE (NEGATIVE) Urine WBC (Auto) NONE (0-5) /HPF Urine RBC (Auto) 3-5 (0-2) /HPF U Hyaline Cast (Auto) 11-25 (0-2) /LPF U Epithel Cells (Auto) NONE (FEW) /HPF Urine Bacteria (Auto) NONE (NEGATIVE) /HPF Urine Mucus (Auto) SLIGHT (NEGATIVE) /HPF Urine Culture Reflexed YES (NO) Urine Glucose >=500 (NEGATIVE) mg/dL Influenza Type A Ag (NEGATIVE) Influenza Type B Ag (NEGATIVE) RSV (PCR) (Negative) SARS-CoV-2 (PCR) (NEGATIVE) - Progress Progress: improved Progress Note: 08/14/21 17:47 Fentanyl 50umg IV/4mg IV Zofran 0.5mg IV Dilaudid 08/14/21 19:06 Spoke w Pt's daughter, Yudi, would like Dr. Leo to do surgery at [place] since she works with him. Yudi spoke w Dr. Leo who wants pt admitted to hospitalist. Pt accepted by [facility], but bed will not be available until tomorrow afternoon, if that. Spoke to Dr. Leo who's was ok w keeping pt at [place]. Pt accepted by Dr. Velez. Zosyn 3.375mg IV 08/15/21 05:26 Counseled pt/family regarding: lab results, diagnosis, need for follow-up, rad results - Departure Departure Disposition: Observation Clinical Impression: Cholecystitis, Pneumonia Condition: Stable Critical Care Time: No
[2021-08-14] MEDS ORDERED: Hydromorphone 1 mg/ml Injection IV ONE (16:46)
--- NOTE | 2021-08-14 16:47 | XRAY ---
Indication: Pain. Short of breath. Multiple contiguous ex images obtained through the abdomen and pelvis without contrast. Comparison: None Lung bases demonstrates moderate bilateral hazy interstitial alveolar opacities without effusion. Also tiny scattered calcified granulomas. Heart is enlarged. [place] mediastinal and bilateral hilar calcified nodes. Distal esophagus demonstrates small centimeter/subcentimeter calcified and noncalcified nodes. Small hiatal hernia. Noncontrasted stomach and bowel loops appear nonobstructed with normal appendix. Mild scattered descending and sigmoid diverticulosis without diverticulitis. Gallbladder abnormally distended with 3.6 cm gallstone near the neck of the gallbladder. No abnormal biliary distention. Absent left kidney either agenesis versus nephrectomy. Right kidney demonstrates 7 mm vascular calcification including origin of the main renal artery. Also nonspecific mild perinephric stranding. However nephritis not completely excluded in the right clinical setting. Remaining liver, pancreas, spleen, adrenal glands, right ureter, and bladder are unremarkable for noncontrast exam. Minimal scattered aortoiliac calcifications without AAA. Osseous structures intact with mild osteopenia and mild/moderate degenerative changes throughout the thoracolumbar spine. Small bilateral fatty inguinal hernias. Impression: 1. Abnormal distended gallbladder with large gallbladder neck stone. 2. Congenitally/surgically absent left kidney. Nonspecific right renal perinephric stranding with intravascular calcification. Nephritis not completely excluded in the right clinical setting. 3. Bibasilar hazy interstitial alveolar opacities. Rule out pneumonia. 4. Cardiomegaly, small hiatal hernia, colonic diverticulosis, bilateral fatty inguinal hernias, chronic bony findings, and old granulomatous disease.
[2021-08-14] MEDS ORDERED: Hydromorphone 1 mg/ml Injection ONE (16:49)
[2021-08-14 17:06] LABS: Appearance SLIGHTLY CLOUDY (CLEAR); Bilirubin NEGATIVE (NEGATIVE); Blood SMALL Ery/ul (0-5); Glucose >=500 mg/dL (NEGATIVE); Ketones NEGATIVE (NEGATIVE); Leukocyte Esterase NEGATIVE (NEGATIVE); Mucus SLIGHT /HPF (NEGATIVE); Nitrite NEGATIVE (NEGATIVE); Protein,Urine Dip 100 (Negative); Specific Gravity 1.021 (1.005-1.025); Urobilinogen 4 mg/dL (0-1)
[2021-08-14 17:13] LABS: AMYLASE < 30 U/L (30-110); LIPASE 48 U/L (23-300)
[2021-08-14] MEDS ORDERED: Zosyn 3.375 GM Vial 3.375 GM in Sodium Chloride 100ML MINI-BAG PLUS 100 ML IV ONE (17:46)
[2021-08-14] MEDS ORDERED: Zosyn 3.375 GM Vial IV ONE ×2 (17:51→23:31)
[2021-08-14] MEDS ORDERED: Sodium Chloride 100ML MINI-BAG PLUS 100 ML IV ONE ×2 (17:52→23:32)
[2021-08-14] MEDS: Sodium Chloride 0.9% 1000 ML 1,000 ML IV SCH (19:19)
[2021-08-14 20:11] LABS: INFLUENZA A NEGATIVE (NEGATIVE); INFLUENZA B NEGATIVE (NEGATIVE); RESPIRATORY SYNCTIAL VIRUS NEGATIVE (Negative); SARS-CoV-2 Xpert Express NEGATIVE (NEGATIVE)
[2021-08-14] MEDS: Hydromorphone 1 mg/ml Injection IV PRN (21:44)
[2021-08-14] MEDS: Zofran 4 MG/2 ML VIAL IV PRN (21:44)
[2021-08-14] MEDS ORDERED: TORAdol 30 mg Injection IM ONE (23:48)
[2021-08-15] MEDS: Zosyn 3.375 GM Vial 3.375 GM in Sodium Chloride 100ML MINI-BAG PLUS 100 ML IV SCH ×5 (00:03→23:38)
[2021-08-15] MEDS: Hydromorphone 1 mg/ml Injection IV PRN ×3 (03:57→15:51)
[2021-08-15] MEDS: Zofran 4 MG/2 ML VIAL IV PRN ×2 (03:57→20:45)
[2021-08-15 04:52] LABS: Hematocrit 42.3 % (42-50); Hemoglobin 13.6 gm/dl (12.5-18.0); Mean Cell Volume 93.8 fl (78-100); Mean Corpuscular Hemoglobin 30.2 pg (26-32); Mean Corpuscular Hgb Concent. 32.2 g/dl (32-36); Mean Platelet Volume 10.6 fl (7.5-11.0); Platelet Count 242 K/mm3 (150-450); Red Blood Count 4.51 M/mm3 (4.1-5.6); Red Cell Distribution Width 12.2 % (11.5-14.0); White Blood Count 21.5 K/mm3 (4.0-10.5)
[2021-08-15] MEDS ORDERED: Zosyn 3.375 GM Vial IV ONE (04:55)
[2021-08-15] MEDS ORDERED: Sodium Chloride 100ML MINI-BAG PLUS 100 ML IV ONE (04:55)
[2021-08-15 04:59] LABS: ALBUMIN 3.2 g/dL (3.5-5.0); ANION GAP 14.1 MEQ/L (5-15); BILIRUBIN,TOTAL 1.8 mg/dL (0.2-1.3); Calcium 8.4 mg/dL (8.4-10.2); Creatinine 1 1.29 mg/dL (0.66-1.25); EST GLOMERULAR FILTRATION RATE 58.7 ML/MIN; Potassium 4.4 mmol/L (3.5-5.1)
[2021-08-15 05:46] LABS: Basophil 1 % (0.0-1.0); Lymphocytes 7 % (24-44); Monocyte 4 % (0.0-12.0); Neutrophils 88 % (36.-66.); Total Cells Counted 100
[2021-08-15 05:47] LABS: Microcytosis 1+; Platelet Estimate NORMAL (NORMAL)
[2021-08-15] MEDS ORDERED: MEFOXIN 2 GM PREMIX** 2 GM/50 ML ML IV SCH (08:00)
[2021-08-15] MEDS: PROTONIX 40 MG IV IV SCH (09:00)
[2021-08-15 10:18] LABS: ALBUMIN 3.2 g/dL (3.5-5.0); BILIRUBIN,TOTAL 1.6 mg/dL (0.2-1.3); Direct Bilirubin 0.7 mg/dL (0.0-0.4); Total Protein 6.1 g/dL (6.3-8.2)
[2021-08-15 10:47] LABS: ANION GAP 13.2 MEQ/L (5-15); Calcium 8.4 mg/dL (8.4-10.2); Creatinine 1 1.33 mg/dL (0.66-1.25); EST GLOMERULAR FILTRATION RATE 56.7 ML/MIN; Potassium 4.8 mmol/L (3.5-5.1)
[2021-08-15] MEDS ORDERED: Sensorcaine 0.25% 10 ML ONE (12:48)
--- NOTE | 2021-08-15 14:03 | PCM.HP ---
History of Present Illness - Chief Complaint Chief Complaint: CHOLECYSTITIS History of Present Illness: is a 71 year old male with HTN,HLD,DM2 who presented to ER with RUQ and right flank/back pain. ER work up showed distended gall bladder with large stone near the neck,bibasilar pneumonia vs atelectasis,congenital abcence left kidney and stranding visualized of the right kidney,possible nephritis. Patient states he has felt sick for 3 days and has not been eating or drinking much - Review of Systems Constitutional: Fever (1 day) Eyes: No Symptoms Ears, Nose, & Throat: No Symptoms Respiratory: Cough Cardiac: No Symptoms Abdominal/Gastrointestinal: Abdominal Pain, Nausea, Appetite Changes Genitourinary Symptoms: No Symptoms Musculoskeletal: No Symptoms Skin: No Symptoms Neurological: No Symptoms Psychological: No Symptoms Endocrine: No Symptoms Medications & Allergies Home Medications: Home Medication List Amlodipine Besylate 2.5 mg PO DAILY 09/03/19 [History Confirmed 08/14/21] Atorvastatin Calcium 20 mg PO DAILY 09/03/19 [History Confirmed 08/14/21] Cholecalciferol (Vitamin D3) [Vitamin D3] 1 tab PO DAILY 09/03/19 [History Confirmed 08/14/21] Cyanocobalamin (Vitamin B-12) [Vitamin B12] 1,000 mcg PO DAILY 09/03/19 [History Confirmed 08/14/21] Gabapentin 100 mg PO TID 09/03/19 [History Confirmed 08/15/21] Glimepiride 1 mg PO TID 09/04/19 [History Confirmed 08/14/21] Insulin Glargine,Hum.rec.anlog [Basaglar Kwikpen U-100] 25 unit SQ HS 09/04/19 [History Confirmed 08/14/21] Insulin Lispro [Humalog] 4 unit SQ AC 09/04/19 [History Confirmed 08/14/21] Hydrocodone/Acetaminophen [Hydrocodone-Acetamin 5-325 mg] 1 tab PO Q4HPRN PRN #22 tablet MDD 5 08/15/21 [Rx] Allergies/Adverse Reactions: Allergies Allergy/AdvReac Type Severity Reaction Status Date / Time No Known Drug Allergies Allergy Verified 08/14/21 15:14 - Past Medical History Past Medical History: Yes Neurological History: No Pertinent History ENT History: No Pertinent History Cardiac History: No Pertinent History Respiratory History: No Pertinent History Endocrine Medical History: Diabetes Type II Musculoskelatal History: No Pertinent History GI Medical History: Ulcer, Other History: Other Pyscho-Social History: No Pertinent History Male Reproductive Disorders: No Pertinent History Comment: states hx of only one kidney. esophageal ulcer 20 years ago. diet controlled diabetic - Past Surgical History Past Surgical History: Yes Neuro Surgical History: No Pertinent History Cardiac History: No Pertinent History Respiratory Surgery: No Pertinent History GI Surgical History: No Pertinent History Genitourinary Surgical Hx: No Pertinent History Musculskeletal Surgical Hx: Other Male Surgical History: No Pertinent History Other Surgical History: fatty tumor exc on back. egd and colonoscopy. exploration to esophageal ulcer - Social History Smoking Status: Never smoker Exposure to second hand smoke: No Alcohol: None Drug Use: none Significant Family History: no pertinent family hx - Physical Exam Vital Signs: Vital Signs - 24 hr Temp Pulse Resp BP Pulse Ox 08/15/21 12:00 18 08/15/21 11:00 97.2 F 95 H 18 164/78 93 L 08/15/21 07:51 98.1 F 86 161/80 95 08/15/21 07:49 20 08/15/21 07:46 94 L 08/15/21 06:04 93 L 08/15/21 05:30 88 159/72 08/15/21 05:27 95 08/15/21 04:00 96.9 F 93 H 22 188/85 95 08/15/21 00:00 97.1 F 90 18 140/80 95 08/14/21 23:30 96 08/14/21 21:20 97.1 F 93 H 22 173/81 91 L 08/14/21 20:06 95 H 155/73 96 08/14/21 19:09 113/54 08/14/21 18:19 97.2 F 93 H 20 145/84 98 08/14/21 17:26 72 18 139/80 97 08/14/21 16:11 78 18 98 08/14/21 15:02 97.2 F 86 18 146/83 95 General Appearance: mild distress (right upper abdominal pain,has had pain med andis NPO awaiting surgery. at bedside) Neurologic Exam: alert Eye Exam: eyes nml inspection Ears, Nose, Throat Exam: normal ENT inspection Neck Exam: normal inspection Respiratory Exam: diminished breath sounds (bases,is painful for patient to take a normal breath) Cardiovascular Exam: regular rate/rhythm, tachycardia Gastrointestinal/Abdomen Exam: tenderness (right upper abdomen and right flank), distention, guarding Rectal Exam: not done Back Exam: other (no CVA tenderness) Extremity Exam: normal inspection Skin Exam: warm (flushed) Results - Labs Lab/Micro Results: Lab Results-Last 24 Hours 08/14/21 08/14/21 08/14/21 Range/Units 13:50 16:48 17:03 WBC (4.0-10.5) K/mm3 RBC (4.1-5.6) M/mm3 Hgb (12.5-18.0) gm/dl Hct (42-50) % MCV (78-100) fl MCH (26-32) pg MCHC (32-36) g/dl RDW (11.5-14.0) % Plt Count (150-450) K/mm3 MPV (7.5-11.0) fl Segmented Neutrophils (36.-66.) % Lymphocytes (Manual) (24-44) % Monocytes (Manual) (0.0-12.0) % Basophils (Manual) (0.0-1.0) % Platelet Estimate (NORMAL) Microcytosis D-Dimer (215-500) ng/mL Sodium (137-145) mmol/L Potassium (3.5-5.1) mmol/L Chloride (98-107) mmol/L Carbon Dioxide (22-30) mmol/L Anion Gap (5-15) MEQ/L BUN (9-20) mg/dL Creatinine (0.66-1.25) mg/dL Estimated GFR ML/MIN Glucose (74-106) mg/dL POC Glucometer (74 to 106) mg/dL Calcium (8.4-10.2) mg/dL Total Bilirubin (0.2-1.3) mg/dL Direct Bilirubin (0.0-0.4) mg/dL AST (17-59) U/L ALT (0-50) U/L Alkaline Phosphatase (38-126) U/L Troponin I < 0.012 (0.000-0.034) ng/mL NT-Pro-B Natriuret Pep (0-900) pg/mL Serum Total Protein (6.3-8.2) g/dL Albumin (3.5-5.0) g/dL Amylase < 30 L (30-110) U/L Lipase 48 (23-300) U/L Urine Color [place] (YELLOW) Urine Appearance SLIGHTLY CLOUDY (CLEAR) Urine pH 5.0 (5-6) Ur Specific [place] 1.021 (1.005-1.025) Urine Protein 100 (Negative) Urine Ketones NEGATIVE (NEGATIVE) Urine Blood SMALL (0-5) Jamison/ul Urine Nitrite NEGATIVE (NEGATIVE) Urine Bilirubin NEGATIVE (NEGATIVE) Urine Urobilinogen 4 (0-1) mg/dL Ur Leukocyte Esterase NEGATIVE (NEGATIVE) Urine WBC (Auto) NONE (0-5) /HPF Urine RBC (Auto) 3-5 (0-2) /HPF U Hyaline Cast (Auto) 11-25 (0-2) /LPF U Epithel Cells (Auto) NONE (FEW) /HPF Urine Bacteria (Auto) NONE (NEGATIVE) /HPF Urine Mucus (Auto) SLIGHT (NEGATIVE) /HPF Urine Culture Reflexed YES (NO) Urine Glucose >=500 (NEGATIVE) mg/dL Influenza Type A Ag (NEGATIVE) Influenza Type B Ag (NEGATIVE) RSV (PCR) (Negative) SARS-CoV-2 (PCR) (NEGATIVE) 08/14/21 08/14/21 08/14/21 Range/Units 18:17 19:16 22:00 WBC (4.0-10.5) K/mm3 RBC (4.1-5.6) M/mm3 Hgb (12.5-18.0) gm/dl Hct (42-50) % MCV (78-100) fl MCH (26-32) pg MCHC (32-36) g/dl RDW (11.5-14.0) % Plt Count (150-450) K/mm3 MPV (7.5-11.0) fl Segmented Neutrophils (36.-66.) % Lymphocytes (Manual) (24-44) % Monocytes (Manual) (0.0-12.0) % Basophils (Manual) (0.0-1.0) % Platelet Estimate (NORMAL) Microcytosis D-Dimer (215-500) ng/mL Sodium (137-145) mmol/L Potassium (3.5-5.1) mmol/L Chloride (98-107) mmol/L Carbon Dioxide (22-30) mmol/L Anion Gap (5-15) MEQ/L BUN (9-20) mg/dL Creatinine (0.66-1.25) mg/dL Estimated GFR ML/MIN Glucose (74-106) mg/dL POC Glucometer (74 to 106) mg/dL Calcium (8.4-10.2) mg/dL Total Bilirubin (0.2-1.3) mg/dL Direct Bilirubin (0.0-0.4) mg/dL AST (17-59) U/L ALT (0-50) U/L Alkaline Phosphatase (38-126) U/L Troponin I < 0.012 < 0.012 (0.000-0.034) ng/mL NT-Pro-B Natriuret Pep (0-900) pg/mL Serum Total Protein (6.3-8.2) g/dL Albumin (3.5-5.0) g/dL Amylase (30-110) U/L Lipase (23-300) U/L Urine Color (YELLOW) Urine Appearance (CLEAR) Urine pH (5-6) Ur Specific [place] (1.005-1.025) Urine Protein (Negative) Urine Ketones (NEGATIVE) Urine Blood (0-5) Jamison/ul Urine Nitrite (NEGATIVE) Urine Bilirubin (NEGATIVE) Urine Urobilinogen (0-1) mg/dL Ur Leukocyte Esterase (NEGATIVE) Urine WBC (Auto) (0-5) /HPF Urine RBC (Auto) (0-2) /HPF U Hyaline Cast (Auto) (0-2) /LPF U Epithel Cells (Auto) (FEW) /HPF Urine Bacteria (Auto) (NEGATIVE) /HPF Urine Mucus (Auto) (NEGATIVE) /HPF Urine Culture Reflexed (NO) Urine Glucose (NEGATIVE) mg/dL Influenza Type A Ag NEGATIVE (NEGATIVE) Influenza Type B Ag NEGATIVE (NEGATIVE) RSV (PCR) NEGATIVE (Negative) SARS-CoV-2 (PCR) NEGATIVE (NEGATIVE) 08/15/21 08/15/21 08/15/21 Range/Units 00:07 00:45 03:45 WBC (4.0-10.5) K/mm3 RBC (4.1-5.6) M/mm3 Hgb (12.5-18.0) gm/dl Hct (42-50) % MCV (78-100) fl MCH (26-32) pg MCHC (32-36) g/dl RDW (11.5-14.0) % Plt Count (150-450) K/mm3 MPV (7.5-11.0) fl Segmented Neutrophils (36.-66.) % Lymphocytes (Manual) (24-44) % Monocytes (Manual) (0.0-12.0) % Basophils (Manual) (0.0-1.0) % Platelet Estimate (NORMAL) Microcytosis D-Dimer (215-500) ng/mL Sodium (137-145) mmol/L Potassium (3.5-5.1) mmol/L Chloride (98-107) mmol/L Carbon Dioxide (22-30) mmol/L Anion Gap (5-15) MEQ/L BUN (9-20) mg/dL Creatinine (0.66-1.25) mg/dL Estimated GFR ML/MIN Glucose (74-106) mg/dL POC Glucometer 277 H (74 to 106) mg/dL Calcium (8.4-10.2) mg/dL Total Bilirubin (0.2-1.3) mg/dL Direct Bilirubin (0.0-0.4) mg/dL AST (17-59) U/L ALT (0-50) U/L Alkaline Phosphatase (38-126) U/L Troponin I < 0.012 < 0.012 (0.000-0.034) ng/mL NT-Pro-B Natriuret Pep (0-900) pg/mL Serum Total Protein (6.3-8.2) g/dL Albumin (3.5-5.0) g/dL Amylase (30-110) U/L Lipase (23-300) U/L Urine Color (YELLOW) Urine Appearance (CLEAR) Urine pH (5-6) Ur Specific [place] (1.005-1.025) Urine Protein (Negative) Urine Ketones (NEGATIVE) Urine Blood (0-5) Jamison/ul Urine Nitrite (NEGATIVE) Urine Bilirubin (NEGATIVE) Urine Urobilinogen (0-1) mg/dL Ur Leukocyte Esterase (NEGATIVE) Urine WBC (Auto) (0-5) /HPF Urine RBC (Auto) (0-2) /HPF U Hyaline Cast (Auto) (0-2) /LPF U Epithel Cells (Auto) (FEW) /HPF Urine Bacteria (Auto) (NEGATIVE) /HPF Urine Mucus (Auto) (NEGATIVE) /HPF Urine Culture Reflexed (NO) Urine Glucose (NEGATIVE) mg/dL Influenza Type A Ag (NEGATIVE) Influenza Type B Ag (NEGATIVE) RSV (PCR) (Negative) SARS-CoV-2 (PCR) (NEGATIVE) 08/15/21 08/15/21 08/15/21 Range/Units 04:00 04:00 05:26 WBC 21.5 H (4.0-10.5) K/mm3 RBC 4.51 (4.1-5.6) M/mm3 Hgb 13.6 (12.5-18.0) gm/dl Hct 42.3 (42-50) % MCV 93.8 (78-100) fl MCH 30.2 (26-32) pg MCHC 32.2 (32-36) g/dl RDW 12.2 (11.5-14.0) % Plt Count 242 (150-450) K/mm3 MPV 10.6 (7.5-11.0) fl Segmented Neutrophils 88 H (36.-66.) % Lymphocytes (Manual) 7 L (24-44) % Monocytes (Manual) 4 (0.0-12.0) % Basophils (Manual) 1 (0.0-1.0) % Platelet Estimate NORMAL (NORMAL) Microcytosis 1+ D-Dimer (215-500) ng/mL Sodium 134 L (137-145) mmol/L Potassium 4.4 (3.5-5.1) mmol/L Chloride 100 (98-107) mmol/L Carbon Dioxide 24 (22-30) mmol/L Anion Gap 14.1 (5-15) MEQ/L BUN 34 H (9-20) mg/dL Creatinine 1.29 H (0.66-1.25) mg/dL Estimated GFR 58.7 ML/MIN Glucose 250 H (74-106) mg/dL POC Glucometer 226 H (74 to 106) mg/dL Calcium 8.4 (8.4-10.2) mg/dL Total Bilirubin 1.80 H (0.2-1.3) mg/dL Direct Bilirubin (0.0-0.4) mg/dL AST 57 (17-59) U/L ALT 48 (0-50) U/L Alkaline Phosphatase 118 (38-126) U/L Troponin I (0.000-0.034) ng/mL NT-Pro-B Natriuret Pep (0-900) pg/mL Serum Total Protein 6.0 L (6.3-8.2) g/dL Albumin 3.2 L (3.5-5.0) g/dL Amylase (30-110) U/L Lipase (23-300) U/L Urine Color (YELLOW) Urine Appearance (CLEAR) Urine pH (5-6) Ur Specific [place] (1.005-1.025) Urine Protein (Negative) Urine Ketones (NEGATIVE) Urine Blood (0-5) Jamison/ul Urine Nitrite (NEGATIVE) Urine Bilirubin (NEGATIVE) Urine Urobilinogen (0-1) mg/dL Ur Leukocyte Esterase (NEGATIVE) Urine WBC (Auto) (0-5) /HPF Urine RBC (Auto) (0-2) /HPF U Hyaline Cast (Auto) (0-2) /LPF U Epithel Cells (Auto) (FEW) /HPF Urine Bacteria (Auto) (NEGATIVE) /HPF Urine Mucus (Auto) (NEGATIVE) /HPF Urine Culture Reflexed (NO) Urine Glucose (NEGATIVE) mg/dL Influenza Type A Ag (NEGATIVE) Influenza Type B Ag (NEGATIVE) RSV (PCR) (Negative) SARS-CoV-2 (PCR) (NEGATIVE) 08/15/21 08/15/21 08/15/21 Range/Units 09:50 10:00 10:28 WBC (4.0-10.5) K/mm3 RBC (4.1-5.6) M/mm3 Hgb (12.5-18.0) gm/dl Hct (42-50) % MCV (78-100) fl MCH (26-32) pg MCHC (32-36) g/dl RDW (11.5-14.0) % Plt Count (150-450) K/mm3 MPV (7.5-11.0) fl Segmented Neutrophils (36.-66.) % Lymphocytes (Manual) (24-44) % Monocytes (Manual) (0.0-12.0) % Basophils (Manual) (0.0-1.0) % Platelet Estimate (NORMAL) Microcytosis D-Dimer (215-500) ng/mL Sodium 135 L (137-145) mmol/L Potassium 4.8 (3.5-5.1) mmol/L Chloride 102 (98-107) mmol/L Carbon Dioxide 25 (22-30) mmol/L Anion Gap 13.2 (5-15) MEQ/L BUN 35 H (9-20) mg/dL Creatinine 1.33 H (0.66-1.25) mg/dL Estimated GFR 56.7 ML/MIN Glucose 240 H (74-106) mg/dL POC Glucometer (74 to 106) mg/dL Calcium 8.4 (8.4-10.2) mg/dL Total Bilirubin 1.60 H (0.2-1.3) mg/dL Direct Bilirubin 0.7 H (0.0-0.4) mg/dL AST 48 (17-59) U/L ALT 49 (0-50) U/L Alkaline Phosphatase 121 (38-126) U/L Troponin I (0.000-0.034) ng/mL NT-Pro-B Natriuret Pep 251 (0-900) pg/mL Serum Total Protein 6.1 L (6.3-8.2) g/dL Albumin 3.2 L (3.5-5.0) g/dL Amylase (30-110) U/L Lipase (23-300) U/L Urine Color (YELLOW) Urine Appearance (CLEAR) Urine pH (5-6) Ur Specific [place] (1.005-1.025) Urine Protein (Negative) Urine Ketones (NEGATIVE) Urine Blood (0-5) Jamison/ul Urine Nitrite (NEGATIVE) Urine Bilirubin (NEGATIVE) Urine Urobilinogen (0-1) mg/dL Ur Leukocyte Esterase (NEGATIVE) Urine WBC (Auto) (0-5) /HPF Urine RBC (Auto) (0-2) /HPF U Hyaline Cast (Auto) (0-2) /LPF U Epithel Cells (Auto) (FEW) /HPF Urine Bacteria (Auto) (NEGATIVE) /HPF Urine Mucus (Auto) (NEGATIVE) /HPF Urine Culture Reflexed (NO) Urine Glucose (NEGATIVE) mg/dL Influenza Type A Ag (NEGATIVE) Influenza Type B Ag (NEGATIVE) RSV (PCR) (Negative) SARS-CoV-2 (PCR) (NEGATIVE) 08/15/21 08/15/21 Range/Units 11:30 11:53 WBC (4.0-10.5) K/mm3 RBC (4.1-5.6) M/mm3 Hgb (12.5-18.0) gm/dl Hct (42-50) % MCV (78-100) fl MCH (26-32) pg MCHC (32-36) g/dl RDW (11.5-14.0) % Plt Count (150-450) K/mm3 MPV (7.5-11.0) fl Segmented Neutrophils (36.-66.) % Lymphocytes (Manual) (24-44) % Monocytes (Manual) (0.0-12.0) % Basophils (Manual) (0.0-1.0) % Platelet Estimate (NORMAL) Microcytosis D-Dimer 1462 H* (215-500) ng/mL Sodium (137-145) mmol/L Potassium (3.5-5.1) mmol/L Chloride (98-107) mmol/L Carbon Dioxide (22-30) mmol/L Anion Gap (5-15) MEQ/L BUN (9-20) mg/dL Creatinine (0.66-1.25) mg/dL Estimated GFR ML/MIN Glucose (74-106) mg/dL POC Glucometer 219 H (74 to 106) mg/dL Calcium (8.4-10.2) mg/dL Total Bilirubin (0.2-1.3) mg/dL Direct Bilirubin (0.0-0.4) mg/dL AST (17-59) U/L ALT (0-50) U/L Alkaline Phosphatase (38-126) U/L Troponin I (0.000-0.034) ng/mL NT-Pro-B Natriuret Pep (0-900) pg/mL Serum Total Protein (6.3-8.2) g/dL Albumin (3.5-5.0) g/dL Amylase (30-110) U/L Lipase (23-300) U/L Urine Color (YELLOW) Urine Appearance (CLEAR) Urine pH (5-6) Ur Specific [place] (1.005-1.025) Urine Protein (Negative) Urine Ketones (NEGATIVE) Urine Blood (0-5) Jamison/ul Urine Nitrite (NEGATIVE) Urine Bilirubin (NEGATIVE) Urine Urobilinogen (0-1) mg/dL Ur Leukocyte Esterase (NEGATIVE) Urine WBC (Auto) (0-5) /HPF Urine RBC (Auto) (0-2) /HPF U Hyaline Cast (Auto) (0-2) /LPF U Epithel Cells (Auto) (FEW) /HPF Urine Bacteria (Auto) (NEGATIVE) /HPF Urine Mucus (Auto) (NEGATIVE) /HPF Urine Culture Reflexed (NO) Urine Glucose (NEGATIVE) mg/dL Influenza Type A Ag (NEGATIVE) Influenza Type B Ag (NEGATIVE) RSV (PCR) (Negative) SARS-CoV-2 (PCR) (NEGATIVE) Microbiology 08/14/21 16:48 Urine Culture - Preliminary Clean Catch Midstream NO GROWTH TO DATE - Radiology Impressions Radiology Exams & Impressions: Radiology Procedures Category Date Time Status ABDOMEN AND PELVIS W/0 CONTRAS [CT] Stat Exams 08/14/21 16:02 Completed - Other Procedures and Tests Respiratory Therapy 08/14/21 23:29 Oxygen Nasal Cannula 2 lpm Assessment/Plan (1) Cholecystitis Current Visit: Yes Status: Acute Assessment & Plan: General surgery plans cholecystectomy this afternoon,patient is NPO Code(s): K81.9 - CHOLECYSTITIS, UNSPECIFIED (2) Leukocytosis Current Visit: Yes Status: Acute Assessment & Plan: cholecystitis ,possible pneumonia Code(s): D72.829 - ELEVATED WHITE BLOOD CELL COUNT, UNSPECIFIED (3) DM2 (diabetes mellitus, type 2) Current Visit: No Status: Chronic Qualifiers: Diabetes mellitus fpc insulin use: with fpc use Diabetes mellitus complication status: with hyperglycemia Qualified Code(s): E11.65 - Type 2 diabetes mellitus with hyperglycemia; Z79.4 - residential (current) use of insulin Assessment & Plan: needs improved control (4) AGENESIS ONE KIDNEY Current Visit: Yes Status: Chronic (5) HTN (hypertension) Current Visit: Yes Status: Chronic Assessment & Plan: monitor Code(s): I10 - ESSENTIAL (PRIMARY) HYPERTENSION
[2021-08-15] MEDS: Sodium Chloride 0.9% 1000 ML 1,000 ML IV SCH (14:40)
[2021-08-15] MEDS: Coreg 6.25 MG PO SCH ×2 (15:48→22:11)
[2021-08-15] MEDS ORDERED: Sodium Chloride 0.9% 1000 ML 1,000 ML ONE ×2 (16:11→18:43)
[2021-08-15] MEDS ORDERED: Zemuron 100 MG/10 ML ONE ×3 (17:05→18:47)
[2021-08-15] MEDS ORDERED: Zofran 4 MG/2 ML VIAL ONE (17:05)
[2021-08-15] MEDS ORDERED: BRIDION 200MG/2ML IV ONE (17:05)
[2021-08-15] MEDS ORDERED: DIPRIVAN 200 MG/20 ML IV ONE (17:05)
[2021-08-15] MEDS ORDERED: SUBLIMAZE 100 MCG/2 ML ONE ×2 (17:21→18:57)
[2021-08-15] MEDS ORDERED: Quelicin Fliptop 200 MG/10 ML ONE (18:08)
[2021-08-15] MEDS ORDERED: NORCO 5/325 MG PO PRN (19:44)
[2021-08-15] MEDS: MORPHINE SULFATE 4 MG INJ IV PRN (21:56)
[2021-08-15] MEDS: SODIUM CHLORIDE 0.45% W/ 20 mEq KCL 1,000 ML IV SCH (21:59)
[2021-08-16] MEDS: MORPHINE SULFATE 4 MG INJ IV PRN ×3 (02:08→15:41)
[2021-08-16 04:54] LABS: Absolute Neutrophil Ct (ANC) 11.06 (1.4-6.9); BASOPHIL % 0.3 % (0.0-0.4); Basophil (Absolute #) 0.04 (0-0.4); Eosinophil % 0.6 % (0.00-5.0); Eosinophil (Absolute #) 0.09 (0-0.5); Hematocrit 37.8 % (42-50); Hemoglobin 11.9 gm/dl (12.5-18.0); Lymphocyte (Absolute #) 1.89 (1.0-4.6); Lymphocytes % 13.1 % (24.0-44.0); Mean Cell Volume 95.9 fl (78-100); Mean Corpuscular Hemoglobin 30.2 pg (26-32); Mean Corpuscular Hgb Concent. 31.5 g/dl (32-36); Mean Platelet Volume 10.4 fl (7.5-11.0); Monocyte (Absolute #) 1.34 (0.0-1.3); Monocytes % 9.3 % (0.0-12.0); Neutrophil % 76.7 % (36.0-66.0); Platelet Count 228 K/mm3 (150-450); Red Blood Count 3.94 M/mm3 (4.1-5.6); Red Cell Distribution Width 12.2 % (11.5-14.0); White Blood Count 14.4 K/mm3 (4.0-10.5)
[2021-08-16 05:06] LABS: ALBUMIN 2.6 g/dL (3.5-5.0); BILIRUBIN,TOTAL 1.1 mg/dL (0.2-1.3); Direct Bilirubin 0.5 mg/dL (0.0-0.4); Total Protein 5.4 g/dL (6.3-8.2)
[2021-08-16] MEDS: Zosyn 3.375 GM Vial 3.375 GM in Sodium Chloride 100ML MINI-BAG PLUS 100 ML IV SCH ×3 (05:35→17:29)
[2021-08-16] MEDS ORDERED: HUMALOG SQ SCH (08:00)
[2021-08-16] MEDS ORDERED: HUMALOG SQ PRN (09:22)
[2021-08-16] MEDS: PROTONIX 40 MG IV IV SCH (09:54)
[2021-08-16] MEDS: VITAMIN D PO SCH (09:54)
[2021-08-16] MEDS: NORVASC 5 MG PO SCH (09:55)
[2021-08-16] MEDS: Vitamin B-12 500 MCG PO SCH (09:55)
[2021-08-16] MEDS: Neurontin 100 MG PO SCH ×3 (09:55→22:10)
[2021-08-16] MEDS: Coreg 6.25 MG PO SCH ×2 (09:55→22:10)
[2021-08-16] MEDS: ZOCOR 20MG PO SCH (09:55)
[2021-08-16] MEDS: Amaryl 2 MG PO SCH ×2 (09:55→16:35)
[2021-08-16] MEDS ORDERED: NON-FORMULARY ITEM (Cholecalciferol (Vitamin D3) [Vitamin D3] 2,000 UNIT Capsule) PO SCH (10:00)
[2021-08-16] MEDS ORDERED: Vitamin B-12 500 MCG PO SCH (10:00)
[2021-08-16] MEDS ORDERED: NON-FORMULARY ITEM (Cyanocobalamin (Vitamin B-12) [Vitamin B12] 2,500 MCG Tablet) PO SCH (10:00)
[2021-08-16] MEDS ORDERED: VITAMIN D PO SCH (10:00)
[2021-08-16] MEDS ORDERED: NORVASC 5 MG PO SCH (10:00)
[2021-08-16] MEDS ORDERED: NON-FORMULARY ITEM (Atorvastatin Calcium [Atorvastatin Calcium] 20 MG Tablet) PO SCH (10:00)
[2021-08-16] MEDS ORDERED: NON-FORMULARY ITEM (Amlodipine Besylate [Amlodipine Besylate] 2.5 MG Tablet) PO SCH (10:00)
[2021-08-16] MEDS ORDERED: ZOCOR 20MG PO SCH (10:00)
[2021-08-16] MEDS ORDERED: Neurontin 100 MG PO SCH (10:00)
[2021-08-16] MEDS ORDERED: NON-FORMULARY ITEM (Glimepiride [Glimepiride] 1 MG Tablet) PO SCH (10:00)
[2021-08-16] MEDS ORDERED: NON-FORMULARY ITEM (Insulin Lispro 1 UNIT Ml) SQ SCH (11:30)
--- NOTE | 2021-08-16 11:43 | CONS ---
CONSULT DATE: 08/15/2021 HISTORY: A 71-year-old gentleman with hypertension, diabetes, hyperlipidemia, some heart disease, has one kidney. He had some upper abdominal pain radiating from his neck into his back forward. He came in last night. He had a gallstone. His ALT and alkaline phosphatase were okay. He originally had been at [facility] but there were not any beds available and he was admitted here. Asked for surgical evaluation. PAST MEDICAL HISTORY: Ulcer in esophagus in the past. He has only one kidney. Otherwise pertinent for multiple medical problems noted above. He denied ortho problems in the past. He denied any abdominal surgery. PAST SURGICAL HISTORY: He had tumor removed on his back. He had endoscopy and colonoscopy in the past. MEDICATIONS: Amlodipine, atorvastatin, cholecalciferol, cyanocobalamin, gabapentin, glimepiride, insulin glargine and Lispro. ALLERGIES: NKDA. FAMILY HISTORY: Negative in regards to this problem. SOCIAL HISTORY: No smoking or alcohol abuse. REVIEW OF SYSTEMS: Fourteen systems reviewed. No chest pain or palpitations other systems negative or noncontributory as above and per preadmission questionnaire. He was given cardiac clearance. Moderate risk per kit planner. Anesthesia felt safe to proceed with the case down here. PHYSICAL EXAMINATION: GENERAL: No acute distress. He is afebrile. Blood pressure this morning was 159/72. HEENT: Sclera nonicteric. NECK: No JVD. CHEST: Equal excursion, nonlabored breathing. CVS: Regular rate and rhythm. ABDOMEN: Soft, some tenderness right upper quadrant. No peritoneal signs. EXTREMITIES: No edema. NEURO: Alert, oriented, moving extremities grossly symmetrically. PSYCH: Appropriate mood and affect. LAB DATA AND TESTS: His AST and ALT were normal and so was alkaline phosphatase. Lipase okay. IMPRESSION: Acute abdominal pain, cholelithiasis, cholecystitis. I feel he would benefit from cholecystectomy. Risks and benefits explained in detail including but not limited to bleeding or infection, risk of bowel, bladder or blood vessel injury, risk of bile leak, bile duct injury, retained stone or sludge possibly requiring further procedure either open or ERCP, general risk of anesthesia, deep venous thrombosis, pulmonary embolism, pneumonia, perioperative risk of aches, pains, bloating, constipation and/or loose stools possibly even chronic in nature. He understands and agrees to the planned procedure, will proceed with laparoscopic cholecystectomy when OR time available.
[2021-08-16] MEDS: SODIUM CHLORIDE 0.45% W/ 20 mEq KCL 1,000 ML IV SCH (12:15)
--- NOTE | 2021-08-16 13:46 | OP ---
SURGERY DATE/TIME: 08/15/2021 1712 PREOPERATIVE DIAGNOSIS: Acute cholecystitis, symptomatic cholelithiasis. POSTOPERATIVE DIAGNOSIS: Acute gangrenous cholecystitis, cholelithiasis with phlegmon. PROCEDURE: Laparoscopic cholecystectomy, difficult. SURGEON: Dr. Kun Pollard. ANESTHESIA: General. ESTIMATED BLOOD LOSS: Less than 75 cc. INDICATIONS: As noted above. Risks and benefits explained in detail but not limited to and consent obtained. DESCRIPTION OF PROCEDURE AND FINDINGS: The patient was taken to the operating room. General anesthesia induced. Abdomen prepped and draped in the usual sterile fashion. After official time out and no disagreement with planned procedure, a transverse incision made supraumbilical area. Fascia grasped and pulled upward Veress needle inserted and tested with saline. Pneumoperitoneum accomplished insufflating opening pressure of 0-15. A 5 mm bladeless port and camera inserted without difficulty followed by two - 5 mm right upper quadrant ports and 12 mm epigastric port. With the phlegmon upper quadrant, his gallbladder was tense and distended and could not be grasped and required sticking a Veress needle and 50 cc syringe aspirating 30 or 40 cc of bile to allow the gallbladder to be grasped. It was then noted at the top half to two-thirds of the gallbladder was all ischemic and gangrenous with extensive phlegmon in the body of the gallbladder, Morteza's pouch towards the infundibulum. Slowly and carefully the cystic duct was slowly carefully skeletonized until critical view obtained anteriorly and posteriorly. It had a large stone in the neck of the gallbladder. Slowly and carefully this was skeletonized until critical view obtained anteriorly and posteriorly. Once this is accomplished clip is placed. Extensive reaction. A couple large 12 mm clips were placed outside the 10 clip. Appeared to seal this stump. It should be noted this stump was friable. The family was later explained there is a small possibility this could have a delayed leak therefore drain will be placed at the end of the procedure. At this point the vascular pedicle veins extensive inflammatory reaction was carefully isolated. Small oozing side branch off the cystic artery was necessary to seal with LigaSure device. The main cystic artery was isolated directly on the gallbladder wall. It was clipped x3 and divided. The gallbladder was then slowly and carefully peeled from the liver bed requiring aide of LigaSure device sealing some small oozing veins directly on the gallbladder wall as necessary along with the hook cautery. This was very, very friable and gangrenous. It took quite some time and added extra dissecting this free added an extra hour onto the usual gallbladder time. Slowly and carefully dissected up towards the anterior edge of the liver. There was another oozing side branch off the cystic artery and vein carefully clipped directly on the gallbladder wall. Copious amount of irrigation irrigating clear. There was no specific vessel to cauterize, ligate or clip. However, the raw liver bed where this gangrenous gallbladder had been peeled free with scant ooze. It was elected to leave some Surgicel thicker weight material. Appeared to have good hemostasis. Copious amount of irrigation irrigated. Good hemostasis is noted. The clips were noted to be in place on the cystic duct stump. There was no visible bile leak at this point. The patient had a lot of bilious transudate from this gangrenous gallbladder at the beginning of the procedure. Copious irrigation irrigating clear. The gallbladder released from final attachments to the anterior edge of the liver, appeared to have good hemostasis. It was placed in the provided sac by the hospital pulled up. Pencil cautery used to enlarge the skin incision a little bit the large stone and distended gallbladder. Clamp enlarging the fascia defect. The gallbladder and bag were pulled free and passed off. LORI drain placed in subhepatic space out the lateral port incision secured with PDS suture once the suture made available. Copious amount of irrigation irrigating lateral to the liver and subhepatic space irrigating as clear as possible. In the liver bed, the clips noted to be in place in cystic duct stump. No signs of any visible bile leak. No signs of any active bleeding currently. LORI drain is in good position subhepatic space out through lateral port incision and placed to bulb suction. At this point pneumoperitoneum decompressed. Port removed. The fascia at the 12 site is closed under direct vision with the UR needle and 0 or #1 Vicryl. The wound is irrigated out. Skin incision closed with 4-0 Vicryl. 0.25% Marcaine local injected along the skin incision fascial defect at the beginning of the procedure. There were no immediate complications. It was a long, difficult dissection and additional equipment, additional extra hour of dissection time dissecting this gangrenous gallbladder free from the phlegmon on liver bed accomplished as carefully, safely as possible. He was transferred to the recovery room in stable condition. There were no immediate complications. 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 Findings were discussed with the out in the waiting room as well as his daughter who was on the phone, including the small possibility of delayed bile leak from cystic duct stump that may require other intervention or ERCP if fails to heal on its own.
[2021-08-16] MEDS: ENOXAPARIN SODIUM SQ SCH (16:32)
[2021-08-16] MEDS ORDERED: NON-FORMULARY ITEM (Insulin Glargine,Hum.Rec.Anlog [Basaglar Kwikpen U-100] 100 UNIT/ML In SQ SCH (22:00)
[2021-08-16] MEDS ORDERED: Lantus Insulin SQ SCH ×2 (22:00)
[2021-08-16] MEDS: NORCO 5/325 MG PO PRN (22:14)
[2021-08-17] MEDS: Zosyn 3.375 GM Vial 3.375 GM in Sodium Chloride 100ML MINI-BAG PLUS 100 ML IV SCH ×3 (00:24→11:53)
[2021-08-17] MEDS: SODIUM CHLORIDE 0.45% W/ 20 mEq KCL 1,000 ML IV SCH (02:54)
[2021-08-17 06:00] LABS: Absolute Neutrophil Ct (ANC) 4.74 (1.4-6.9); BASOPHIL % 0.7 % (0.0-0.4); Basophil (Absolute #) 0.06 (0-0.4); Eosinophil % 8.1 % (0.00-5.0); Eosinophil (Absolute #) 0.74 (0-0.5); Hematocrit 36.6 % (42-50); Hemoglobin 11.3 gm/dl (12.5-18.0); Lymphocyte (Absolute #) 2.54 (1.0-4.6); Lymphocytes % 27.9 % (24.0-44.0); Mean Cell Volume 96.8 fl (78-100); Mean Corpuscular Hemoglobin 29.9 pg (26-32); Mean Corpuscular Hgb Concent. 30.9 g/dl (32-36); Mean Platelet Volume 10.5 fl (7.5-11.0); Monocyte (Absolute #) 1.04 (0.0-1.3); Monocytes % 11.4 % (0.0-12.0); Neutrophil % 51.9 % (36.0-66.0); Platelet Count 224 K/mm3 (150-450); Red Blood Count 3.78 M/mm3 (4.1-5.6); Red Cell Distribution Width 12.3 % (11.5-14.0); White Blood Count 9.1 K/mm3 (4.0-10.5)
[2021-08-17 06:17] LABS: ALBUMIN 2.5 g/dL (3.5-5.0); ALKALINE PHOSPHATASE 100 U/L (38-126); ANION GAP 10.8 MEQ/L (5-15); BLOOD UREA NITROGEN 32 mg/dL (9-20); CHLORIDE 103 mmol/L (98-107); Calcium 7.8 mg/dL (8.4-10.2); Carbon Dioxide 25 mmol/L (22-30); Creatinine 1 1.16 mg/dL (0.66-1.25); EST GLOMERULAR FILTRATION RATE > 60.0 ML/MIN; Glucose 76 mg/dL (74-106); Potassium 4.2 mmol/L (3.5-5.1); SGOT/AST 30 U/L (17-59); SGPT/ALT 35 U/L (0-50); SODIUM 135 mmol/L (137-145); Total Protein 5.2 g/dL (6.3-8.2)
[2021-08-17] MEDS: NORCO 5/325 MG PO PRN (07:50)
[2021-08-17] MEDS: Amaryl 2 MG PO SCH (08:37)
[2021-08-17] MEDS: PROTONIX 40 MG IV IV SCH (09:31)
[2021-08-17] MEDS: ENOXAPARIN SODIUM SQ SCH (09:31)
[2021-08-17] MEDS: VITAMIN D PO SCH (09:32)
[2021-08-17] MEDS: Vitamin B-12 500 MCG PO SCH (09:32)
[2021-08-17] MEDS: Coreg 6.25 MG PO SCH (09:32)
[2021-08-17] MEDS: Neurontin 100 MG PO SCH (09:33)
[2021-08-17] MEDS: NORVASC 5 MG PO SCH (09:33)
[2021-08-17] MEDS: ZOCOR 20MG PO SCH (09:38)
[2021-08-17 13:38] VITALS: BP 128/60; PULSE 59; O2SAT 92
== END 2021-08-17 15:51 | disposition home or self-care (01) ==
LOC: ED 15:02 → MED SURG 20:20 → ICU 08-15 19:37 → MED SURG 08-16 13:12
PROVIDERS: ADMIT Family Medicine; ATTEND Family Medicine
DX: K80.00 Calculus of gallbladder with acute cholecystitis without obstruction (principal); K82.A1 Gangrene of gallbladder in cholecystitis; D72.829 Elevated white blood cell count, unspecified; I10 Essential (primary) hypertension; E11.65 Type 2 diabetes mellitus with hyperglycemia; Q60.0 Renal agenesis, unilateral; E78.5 Hyperlipidemia, unspecified; R11.2 Nausea with vomiting, unspecified; Z79.899 Other long term (current) drug therapy; Z79.4 Long term (current) use of insulin; Z20.828 Contact with and (suspected) exposure to other viral communicable diseases
CPT/HCPCS: 0241U; 36415; 47562; 74176; 80048; 80053; 80076; 81001; 82150; 82947; 83036; 83690; 83880; 84484; 85025; 85379; 87086; 93005; 93268; 94760; 94762; 96360; 96374; 96375; 99285; G0378; Q3014; 36620; 88304; J0330; J1170; J1650; J2270; J2405; J2704; J3010; A9270-GY